=== PATIENT | female | born 1985 | race Caucasian/White ===

== ENCOUNTER 2019-11-29 07:37 | Emergency (ER) | payer OTHER, SELFPAY ==
--- NOTE | ~2019-11-29 | XR_ITS ---
EXAMINATION: XR chest 2V DATE: 11/29/2019 09:51 INDICATION: Heart palpitations TECHNIQUE: PA and lateral views of the chest are obtained. COMPARISON: None available FINDINGS: The lungs are free of acute opacities. There is no pleural effusion or pneumothorax. The ca rdiomediastinal silhouette is normal. There is subtle thoracic levocurvature. IMPRESSION: 1. No acute cardiopulmonary abnormality. Reviewed, dictated and finalized at location A.
[2019-11-29 07:44] VITALS: BP 122/77; PULSE 102; RESP 18; TEMP 36.7; O2SAT 98
[2019-11-29 07:50] VITALS: BP 122/77; PULSE 94; RESP 18; O2SAT 99
--- NOTE | 2019-11-29 07:59 | ED.ARRPALP ---
HPI - Arrhythmia/Palpitations General Chief Complaint: Arrhythmia/Palpitations Stated Complaint: palpitations Time Seen by Provider: 11/29/19 07:59 Source: patient and family Mode of arrival: ambulatory Limitations: no limitations History of Present Illness HPI narrative: Patient is a 34-year-old female who presents for evaluation of palpitations. Patient reports intermittent palpitations over the past week. Patient states that she has a recent diagnosis of anxiety and has been seen by her primary care physician's office and diagnosed with possible panic disorder and anxiety. Patient has a prescription for last lorazepam as needed, but does not like the way she makes her feel. She denies any current chest pain, hair loss, dry skin or unintended weight loss. No history of thyroid issues. No diarrhea or abdominal pain. No skin flushing that the patient has noticed. Patient denies any current chest pain, patient does states she feels palpitations currently, heart rate in room at the time of my assessment is in the 80s. Patient denies recent car or air travel. No history of blood clot. Related Data Home Medications Medication Instructions Recorded Confirmed No Home Medications 11/29/19 Allergies Allergy/AdvReac Type Severity Reaction Status Date / Time No Known Allergies Allergy Unknown Verified 11/29/19 07:49 Review of Systems Review of Systems: Narrative: CONSTITUTIONAL: Denies fever, chills, at times patient can feel diaphoretic with the palpitations EYES: Denies visual changes, redness, or discharge. ENT: Denies rhinorrhea, congestion, sore throat, or otalgia. CARDIOVASCULAR: Denies chest pain, reports palpitations without leg edema RESPIRATORY: Denies cough or dyspnea. GASTROINTESTINAL: Denies abdominal pain, nausea, vomiting, or diarrhea. GENITOURINARY: Denies dysuria or hematuria. SKIN: Denies rash or itching. MUSCULOSKELETAL: Denies back pain, joint pain, or myalgia. NEUROLOGIC: Denies headache, numbness, or weakness. PSYCHIATRIC: Reports anxiety PMFSH Past Medical History Medical History (Updated 11/29/19 @ 10:55 by Lily Paniagua MD) Anxiety Social History Social History (Updated 11/29/19 @ 08:35 by Lily Paniagua MD) Smoking status: Never smoker Alcohol intake: current Substance use: never Living arrangements: with family Gender identity (if verbalized by the patient): Female Sexual Orientation (if Verbalized by the Patient): Straight or Heterosexual Exam Narrative: Exam Narrative: GENERAL: Awake, alert, conversant HEAD: Normocephalic, atraumatic. EYES: PERRLA and EOMI. ENT: Nares clear, no rhinorrhea or epistaxis. Mucous membranes moist. NECK: Supple. CHEST: No respiratory distress, breathing even and non labored HEART: Regular rate, sinus rhythm ABDOMEN:Non distended, non tender EXTREMITIES: Normal range of motion. No edema. SKIN: Warm, dry, no rash. NEURO:No focal deficits. Alert and oriented x3 Course Vital Signs Vital signs: Vital Signs Temperature 36.7 C 11/29/19 07:44 Pulse Rate 102 H 11/29/19 07:44 Respiratory Rate 18 11/29/19 07:44 Blood Pressure 122/77 11/29/19 07:44 Pulse Oximetry 98 11/29/19 07:44 Temperature 36.7 C 11/29/19 07:44 Pulse Rate 90 11/29/19 09:00 Respiratory Rate 20 11/29/19 09:00 Blood Pressure 128/85 11/29/19 09:00 Pulse Oximetry 95 11/29/19 09:00 MDM - Arrhythmia/Palpitations MDM Narrative Medical decision making narrative: Patient presented for evaluation of palpitations. These of been ongoing over the past week. Patient at the time of presentation is in normal sinus rhythm without evidence of arrhythmia or ischemic changes on EKG. Vital signs are very stable. No reproducible chest wall pain. No signs of hyper or hypothyroidism. Laboratory results are quite reassuring with a negative troponin, no evidence of hyper or hypothyroidism, d-dimer is negative, not suggestive of a blood clot. Patient
[2019-11-29 08:20] LABS: Basophils Percent Auto 0.3 % (0.2-1.2); Eosinophils Percent Auto 0.1 % (0-4.4); Hematocrit 45.4 % (37.0-47.0); Immature Granulocyte Absolute 0.15 K/mm3 (0.00-0.031); Immature Granulocyte Percent A 1.6 % (0-0.5); Lymphocytes Absolute Auto 1.82 K/mm3 (0.9-3.2); Lymphocytes Percent Auto 19.2 % (18.3-44.2); Mean Corpuscular Hemoglobin 29.2 pg (26-34); Mean Corpuscular Volume 88.3 fl (80-100); Monocytes Absolute Auto 0.6 K/mm3 (0.1-0.6); Monocytes Percent Auto 5.9 % (2.6-8.5); Neutrophils Absolute Auto 6.9 K/mm3 (1.3-6.7); Neutrophils Percent Auto 72.9 % (45.5-73.1); Platelet Count Result 327 k/mm3 (150-375); Red Blood Count 5.14 M/mm3 (4.2-5.4); Red Cell Distribution Width 12.8 % (11.5-14.5); White Blood Count 9.5 K/mm3 (4.5-10.0)
--- NOTE | 2019-11-29 08:27 | ECG_ITS ---
Measurements Intervals [place] Rate: 95 P: 49 [place]: 177 QRS: 17 QRSD: 93 T: 53 QT: 357 QTc: 451 Interpretive Statements SINUS RHYTHM NORMAL ECG Electronically Signed On 11-29-2019 9:02:40 CDT by Hernandez Olsen D.O.
[2019-11-29 08:29] LABS: Anion Gap 7 mmol/L (8-16); Blood Urea Nitrogen 6 mg/dL (7-17); Carbon Dioxide 27 mmol/L (22-30); Chloride 103 mmol/L (98-107); Estimated CRCL calculation 125 ml/min; Estimated Glomerular Filt Rate > 60; Glucose 99 mg/dL (65-105); Potassium 4.3 mmol/L (3.4-5.0); Sodium 137 mmol/L (137-145)
[2019-11-29 08:40] LABS: Troponin I < 0.012 ng/mL (0.000-0.034)
[2019-11-29 09:00] VITALS: BP 128/85; PULSE 90; RESP 20; O2SAT 95
[2019-11-29 09:31] LABS: INR 1.1; Prothrombin Time 13.5 Seconds (11.1-14.7)
[2019-11-29 09:32] LABS: Partial Thromboplastin Time 28.5 SECONDS (22.3-36.8)
[2019-11-29 09:34] LABS: D Dimer 0.29 ug/mL (<0.48)
== END 2019-11-29 11:26 | disposition home or self-care (01) ==
PROVIDERS: Emergency Provider Emergency Medicine; PCP Internal Medicine
DX: R00.2 Palpitations (principal); F41.9 Anxiety disorder, unspecified
CPT/HCPCS: 36415; 71046; 80048; 84443; 84484; 85025; 85380; 85610; 85730; 93005; 99284

== ENCOUNTER → 2021-03-21 10:06 | Outpatient (REF) | payer OTHER, SELFPAY | LOC: ANHLAB 10:06 | PROVIDERS: PCP Nurse Practitioner Adult Health; Visit Provider Nurse Practitioner | DX: D22.5 Melanocytic nevi of trunk (principal) | CPT/HCPCS: 88305 ==

== ENCOUNTER 2022-02-26 01:16 | Emergency (ER) | payer OTHER, SELFPAY ==
--- NOTE | ~2022-02-26 | XR_ITS ---
EXAMINATION: XR chest 1V portable 02/26/2022 02:05 INDICATION: Left-sided chest pain PROCEDURE: AP portable chest COMPARISON: 11/29/2019 FINDINGS: The lungs are clear. The cardiomediastinal silhouette is within normal limits. There are no pleural effusions. There is no pneumothorax suspected. IMPRESSION: 1: NO ACUTE CARDIOPULMONARY DISEASE. Reviewed, dictated and finalized at location A. [employer]PERATOR
--- NOTE | 2022-02-26 01:18 | ECG_ITS ---
Measurements Intervals [place] Rate: 109 P: 39 [place]: 192 QRS: 14 QRSD: 94 T: 31 QT: 339 QTc: 457 Interpretive Statements SINUS TACHYCARDIA NONSPECIFIC ST AND T WAVE ABNORMALITIES COMPARED TO ECG 11/29/2019 07:49:01 NO SIGNIFICANT CHANGES Electronically Signed On 02-26-2022 11:23:01 CONTRACT NEGOTIATOR by Sonny Jacob M.D.
[2022-02-26 01:21] VITALS: BP 145/98; PULSE 104; RESP 18; TEMP 36.5; O2SAT 98
[2022-02-26 01:59] LABS: Appearance Urine Clear (Clear); Basophils Percent Auto 0.3 % (0.2-1.2); Bilirubin Urine Negative (Negative); Blood Urine Negative (Negative); Color Urine Yellow (Yellow); Eosinophils Absolute Auto 0.1 K/mm3 (0-0.3); Eosinophils Percent Auto 0.5 % (0-4.4); Glucose Urine UA Negative (Negative); Immature Granulocyte Absolute 0.02 K/mm3 (0.00-0.031); Immature Granulocyte Percent A 0.2 % (0-0.5); Ketones Urine Negative (Negative); Leukocyte Esterase Ur 1+ LEU/UL (Negative); Lymphocytes Absolute Auto 3.15 K/mm3 (0.9-3.2); Mean Corpuscular HGB Conc 32.6 g/dl (32-36); Mean Corpuscular Hemoglobin 28.9 pg (26-34); Mean Corpuscular Volume 88.7 fl (80-100); Mean Platelet Volume 10.9 fl (7.4-10.4); Monocytes Absolute Auto 0.8 K/mm3 (0.1-0.6); Monocytes Percent Auto 6.9 % (2.6-8.5); Neutrophils Absolute Auto 6.9 K/mm3 (1.3-6.7); Neutrophils Percent Auto 63.1 % (45.5-73.1); Nitrate Urine Negative (Negative); Platelet Count Result 304 k/mm3 (150-375); Protein Urine Negative (Negative); Red Blood Count 4.85 M/mm3 (4.2-5.4); Red Cell Distribution Width 12.8 % (11.5-14.5); Specific Grav Ur <= 1.005 (1.001-1.035); Urobilinogen Urine 0.2 mg/dL (<2.0); White Blood Count 10.9 K/mm3 (4.5-10.0)
[2022-02-26] MEDS: ONDANSETRON INJ 4 MG/2 ML VIAL IV PUSH (01:59)
[2022-02-26] MEDS: BELLADONNA ALK/PHENOB ELIX 10 ML, MAG HYDROX/ALUMINUM HYD/SIMETH 30 ML, LIDOCAINE HCL 2... PO (01:59)
--- NOTE | 2022-02-26 02:05 | ED.GENADULT ---
HPI - General Adult General Chief complaint: Unspecified Stated complaint: Left shoulder/chest pain, dizzy Time Seen by Provider: 02/26/22 01:36 History of Present Illness HPI narrative: Patient 36-year-old female presents emerged department with chief complaint of chest pain patient reports that this evening she started having pain in the left side of her chest and left shoulder and left neck. Patient reports the pain is not improved by anything reports that she had some nausea and felt as though she was little lightheaded when this was going on as well patient reports no prior history of cardiac disease reports no family history for cardiac disease at a young age. Patient reports symptoms are moderate in severity reports the pain is more of a squeezing-like pain Related Data Home Medications Medication Instructions Recorded Confirmed escitalopram oxalate 5 mg tablet mg 02/26/22 liraglutide (weight loss) 3 mg/0.5 mg subcut 02/26/22 mL (18 mg/3 mL) subcut pen injector (Saxenda) pravastatin 20 mg tablet mg 02/26/22 Allergies Allergy/AdvReac Type Severity Reaction Status Date / Time No Known Allergies Allergy Unknown Verified 02/26/22 01:25 Review of Systems Review of Systems: A 10 system review of systems was completed on the patient and is negative except for what is stated in the HPI. Nursing and ancillary documentation was reviewed. [facility] Past Medical History Medical History Anxiety Social History Social History Alcohol intake: current Substance use: never Gender identity (if verbalized by the patient): Female Sexual Orientation (if Verbalized by the Patient): Straight or Heterosexual Exam Narrative: GENERAL: Well-appearing, well-nourished, and in no acute distress. HEAD: Normocephalic, atraumatic. EYES: PERRLA and EOMI. ENT: Nares clear, no rhinorrhea or epistaxis. Mucous membranes moist. NECK: Supple. CHEST: Clear to auscultation. No respiratory distress. HEART: Regular rate and rhythm. No murmur heard. Normal peripheral pulses. ABDOMEN: Soft, nontender, nondistended, normal active bowel sounds. EXTREMITIES: Normal range of motion. No edema. SKIN: Warm, dry, no rash. NEURO: No focal deficits. Alert and oriented x3. PSYCH: Normal mood and affect. Course Course Emergency Course: EKG is sinus tachycardia rate of [address] elevation or ST depression X-ray shows no focal infiltrate Patient symptoms were completely resolved after receiving the GI cocktail. The patient has a negative troponin with a heart score of 1. Vital Signs Vital signs: Vital Signs Temperature 36.5 C 02/26/22 01:21 Pulse Rate 104 H 02/26/22 01:21 Respiratory Rate 18 02/26/22 01:21 Blood Pressure 145/98 H 02/26/22 01:21 Pulse Oximetry 98 02/26/22 01:21 Oxygen Delivery Room Air 02/26/22 01:21 Temperature 36.5 C 02/26/22 01:21 Pulse Rate 104 H 02/26/22 01:21 Respiratory Rate 18 02/26/22 01:21 Blood Pressure 145/98 H 02/26/22 01:21 Pulse Oximetry 98 02/26/22 01:21 Oxygen Delivery Room Air 02/26/22 01:21 Medical Decision Making Vital Signs Vital Signs: Vital Signs Temperature 36.5 C 02/26/22 01:21 Pulse Rate 104 H 02/26/22 01:21 Respiratory Rate 18 02/26/22 01:21 Blood Pressure 145/98 H 02/26/22 01:21 Pulse Oximetry 98 02/26/22 01:21 Oxygen Delivery Room Air 02/26/22 01:21 Temperature 36.5 C 02/26/22 01:21 Pulse Rate 104 H 02/26/22 01:21 Respiratory Rate 18 02/26/22 01:21 Blood Pressure 145/98 H 02/26/22 01:21 Pulse Oximetry 98 02/26/22 01:21 Oxygen Delivery Room Air 02/26/22 01:21 Lab Data 02/26/22 01:52 02/26/22 01:52 Labs: Lab Results 02/26/22 02/26/22 02/26/22 Range/Units 01:52 01:52 01:52 WBC 10.9 H (4.5-10.0) K/mm3 RBC 4.85 (4.2-5.4)
[2022-02-26 02:12] LABS: Alanine Aminotransferase 16 U/L (6-35); Albumin Level 4.6 g/dL (3.5-5.1); Alkaline Phosphatase 104 U/L (38-126); Anion Gap 9 mmol/L (8-16); Aspartate Amino Transferase 19 U/L (14-36); Bilirubin,Total 0.3 mg/dL (0.2-1.3); Blood Urea Nitrogen 9 mg/dL (7-17); Calcium 8.8 mg/dL (8.4-10.2); Carbon Dioxide 26 mmol/L (22-30); Chloride 105 mmol/L (98-107); Estimated CRCL calculation 95 ml/min; Estimated Glomerular Filt Rate > 60; Glucose 96 mg/dL (65-110); Lipase 134 U/L (23-300); Potassium 3.5 mmol/L (3.4-5.0); Sodium 140 mmol/L (137-145)
[2022-02-26 02:24] LABS: Troponin I < 0.012 ng/mL (0.000-0.034)
[2022-02-26 02:26] LABS: Add Urine Microscopic? YES; RBC Urine 0-2 /hpf (0-2); Squamous Epithelial Cell Urine Occasional /hpf (Few); WBC Urine 0-3 /hpf
[2022-02-26 02:32] LABS: Partial Thromboplastin Time 33.7 SECONDS (22.3-36.8)
== END 2022-02-26 03:19 | disposition home or self-care (01) ==
PROVIDERS: Emergency Provider Emergency Medicine; PCP Nurse Practitioner Adult Health
DX: R07.89 Other chest pain (principal); F41.9 Anxiety disorder, unspecified; R00.0 Tachycardia, unspecified; R94.31 Abnormal electrocardiogram [ECG] [EKG]
CPT/HCPCS: 36415; 71045; 80053; 81001; 83690; 84484; 85025; 85610; 85730; 93005; 96374; 99284; A9270; J2405

== ENCOUNTER 2022-03-20 07:00 | Outpatient (NON) | payer OTHER, SELFPAY | END 2022-03-20 07:01 | disposition home or self-care (01) | PROVIDERS: PCP Nurse Practitioner Adult Health; Visit Provider Nurse Practitioner | DX: D22.62 Melanocytic nevi of left upper limb, including shoulder (principal) | CPT/HCPCS: 88305 ==

== ENCOUNTER 2022-08-17 00:29 | Day surgery (SDC) | payer OTHER, SELFPAY ==
[2022-08-02 14:12] VITALS: BMI 31.6
[2022-08-17 08:17] VITALS: BP 118/66; PULSE 81; RESP 19; TEMP 36.1; O2SAT 100
[2022-08-17] MEDS: LACTATED RINGERS 1,000 ML 150 ML IV CONT (08:36)
--- NOTE | 2022-08-17 08:49 | PM.HPGS ---
History of Present Illness History of Present Illness Consent: Risks, benefits, and alternatives have been discussed and questions answered. Patient agrees to proceed with procedure. Chief complaint: neoplasm screening Narrative: Karli Adame is a 37 year old female Referred for colon cancer screening due to family history of colon cancer. Review of Systems Review of Systems: All systems reviewed & are unremarkable except as noted in HPI and below PMFSH Past Medical History Medical History Anxiety Social History Social History Smoking status: Never smoker Alcohol intake: current Drinks per week: 3 Substance use: never Substance use type: does not use Living arrangements: with family Gender identity (if verbalized by the patient): Female Sexual Orientation (if Verbalized by the Patient): Straight or Heterosexual Spiritual care concerns: No Meds Home Medications and Allergies Home Medications Medication Instructions Recorded Confirmed Type liraglutide (weight loss) 3 mg/0.5 1.8 mg subcut DAILY 02/26/22 08/02/22 History mL (18 mg/3 mL) subcut pen injector (Saxenda) pravastatin 20 mg tablet 20 mg PO DAILY 02/26/22 08/02/22 History Allergies Allergy/AdvReac Type Severity Reaction Status Date / Time No Known Allergies Allergy Unknown Verified 08/17/22 08:16 Vital Signs Vital Signs - 24 hr 08/17/22 08:17 Temperature 36.1 C L Pulse Rate 81 Respiratory Rate 19 Blood Pressure 118/66 Pulse Oximetry 100 Oxygen Delivery Room Air Exam Const: General: alert Orientation/consciousness: patient oriented x3 Resp: Auscultation: clear to auscultation bilaterally Cardio: Rhythm: regular rhythm GI: GI Palp: Yes Soft to palpation and No Tenderness to palpation present (GI) Neuro: General: patient oriented x3 Assessment and Plan Assessment and plan (1) Colon cancer screening: Code(s): Z12.11 - Encounter for screening for malignant neoplasm of colon Status: Acute Assessment and Plan: Colonoscopy with possible biopsy or polypectomy or cautery or injection of substances.
--- NOTE | 2022-08-17 09:08 | WPDANESEPPF ---
Anes - Initial Pre Proc Eval Procedure: Operation Date: 08/17/22 09:30 Proposed Procedures p Screening Colonoscopy - Gaudencio Cardozo MD Date/Time: 08/17/22 09:08 Surgeon: Gaudencio Cardozo MD Pre Op Diagnosis: neoplasm screening Patient Data Age: 37 Gender: F Height: 1.68 m Weight: 91.1 kg Last Vital Signs Temp 97 F L 08/17/22 08:17 Pulse 81 08/17/22 08:17 Resp 19 08/17/22 08:17 BP 118/66 08/17/22 08:17 Pulse Ox 100 08/17/22 08:17 O2 Del Method Room Air 08/17/22 08:17 Allergies Allergy/AdvReac Type Severity Reaction Status Date / Time No Known Allergies Allergy Unknown Verified 08/17/22 08:16 Home Medications Medication Instructions Recorded Confirmed Type liraglutide (weight loss) 3 mg/0.5 1.8 mg subcut DAILY 02/26/22 08/02/22 History mL (18 mg/3 mL) subcut pen injector (Saxenda) pravastatin 20 mg tablet 20 mg PO DAILY 02/26/22 08/02/22 History Patient hx anesthesia problems: none Family hx anesthesia problems: none Results Review: All pre-operative results and documents have been reviewed as part of the pre-operative evaluation. [facility] Past Medical History Medical History Anxiety Social History Social History Smoking status: Never smoker Alcohol intake: current Drinks per week: 3 Substance use: never Substance use type: does not use Living arrangements: with family Gender identity (if verbalized by the patient): Female Sexual Orientation (if Verbalized by the Patient): Straight or Heterosexual Spiritual care concerns: No Anes - Eval Final PreProcedure Day of Procedure 08/17/22 09:08 Patient weight: obese Heart: regular rate and rhythm Lungs: clear to auscultation Airway: Mallampati scale class II Neurological: alert and oriented Last oral intake: >/= 8 hours ASA classification: II Emergent: no Anesthetic plan: proceed Anesthesia type and monitoring: general GIVS and standard monitoring Results Review: All pre-operative results and documents have been reviewed as part of the pre-operative evaluation. Informed Consent: The patient's anesthetic plan and its attendant risks and benefits were discussed with the patient/family/POA. Questions were solicited and answers provided to the satisfaction of the patient/family/POA.
[2022-08-17 09:41] VITALS: BP 104/60; PULSE 76; RESP 19; O2SAT 93
[2022-08-17 09:51] VITALS: BP 104/60; PULSE 76; RESP 19; O2SAT 93
[2022-08-17 10:01] VITALS: BP 114/63; PULSE 76; RESP 19; O2SAT 93
== END 2022-08-17 10:07 | disposition home or self-care (01) ==
PROVIDERS: PCP Nurse Practitioner Family; Visit Provider Internal Medicine Gastroenterology
PROC: 0DJD8ZZ Inspection of Lower Intestinal Tract, Via Natural or Artificial Opening Endoscopic (ICD-10-PCS; CPT 45378; principal; 2022-08-17 09:30)
DX: Z12.11 Encounter for screening for malignant neoplasm of colon (principal); Z80.0 Family history of malignant neoplasm of digestive organs
CPT/HCPCS: 45378; J2001; J2704; J7120

== ENCOUNTER → 2022-10-25 07:07 | Outpatient (CLI) | payer OTHER, SELFPAY ==
--- NOTE | ~2022-10-25 | MR_ITS ---
MRA HEAD History: Family history of aneurysm Technique: 3D time of flight MRA of the head is performed. Findings: The right and left distal vertebral arteries and the basilar and posterior cerebral arterie s are normal. Right and left distal internal carotid arteries and anterior and middle cerebral arteri es are normal. There is no aneurysm, stenosis, or occlusion. Impression: No occlusion, stenosis, or aneurysm. Reviewed, dictated and finalized at location . Impression: No occlusion, stenosis, or aneurysm.
== END ==
PROVIDERS: PCP Nurse Practitioner Family; Visit Provider Nurse Practitioner Family
DX: Z82.49 Family history of ischemic heart disease and other diseases of the circulatory system (principal)
CPT/HCPCS: 70544

== ENCOUNTER 2023-03-21 14:21 | Outpatient (NON) | payer OTHER, SELFPAY | END 2023-03-21 14:22 | disposition home or self-care (01) | LOC: ANHLAB 14:23 | PROVIDERS: PCP Nurse Practitioner Family; Visit Provider Nurse Practitioner | DX: D22.61 Melanocytic nevi of right upper limb, including shoulder (principal); D22.5 Melanocytic nevi of trunk; D22.72 Melanocytic nevi of left lower limb, including hip | CPT/HCPCS: 88305 ==

== ENCOUNTER 2024-10-08 09:41 | Outpatient (CLI) | payer OTHER, SELFPAY ==
--- OUTSIDE RECORDS SUMMARY | 2024-10-08 09:45 | XMS_ITS | Data Portability ---
Author Organization JIN - [facility], Main Office Address [address] [place] [address] Assessment Encounter Date Assessment Date Assessment LastModified by Organization Details LastModified Time 06/26/2022 06/26/2022 [facility] Cscope- ordered Call office if worse, ER if life-threatening illness RTC in 3 months She voices understanding of plan and agrees [email or web address] Not available 06/26/2022 13:59:16 10/02/2022 10/02/2022 [facility] Cscope- 07/2022- Cardozo- Family hx colon ca- repeat 5 years- 07/2027 Call office if worse, ER if life-threatening illness RTC in 4 months She voices understanding of plan and agrees [email or web address] Not available 10/02/2022 13:24:01 02/05/2023 02/05/2023 [facility] Cscope- 07/2022- Cardozo- Family hx colon ca- repeat 5 years- 07/2027 Call office if worse, ER if life-threatening illness RTC in 4 months She voices understanding of plan and agrees [email or web address] Not available 02/05/2023 10:48:15 Plan of Treatment Reminders Order Date Submit Date Provider Last Modified By Organization Details Last Modified Time Details Appointments None recorded. Lab lipid panel, serum 2023 [facility], [address] [facility], [place], [address], 06:28:02 CMP, serum or plasma 2023 [facility], [address] [facility], [place], [address], 4 06:28:04 CBC w/ auto diff 2023 024 [facility], [address], [place], [address], 4 06:28:06 TSH + free T4, serum 2023 024 [facility], [address], [place], [address], 4 06:28:03 HbA1c (hemoglobi n A1c), blood 2023 024 [facility], [address], [place], [address], 4 06:28:08 hepatitis C virus Ab, serum 2023 024 [facility], [address], [place], [address], 4 06:28:07 glycohemog lobin, total, blood 2023 024 [facility] (Lab), [address] [place], [address], 4 08:01:58 lipid panel, serum 2023 024 [facility] (Lab), [address] [place], [address], 4 08:01:57 TSH, serum or plasma 2023 024 [facility] (Lab), [address] [place], [address], 4 08:01:57 CBC w/ auto diff 2023 024 [facility] (Lab), [address] [place], [address], 4 08:01:58 CMP, [facility] or [facility] [address] [place], [address], 4 08:01:58 glycohemog lobin, total, blood 2022 023 [facility] (Lab), [address] [place], [address], 3 19:50:20 CBC w/ auto diff 2022 023 [facility] (Lab), [address] [place], [address], 3 15:05:35 CMP, serum or plasma 2022 023 [facility] (Lab), [address] [place], [address], 3 15:51:58 lipid panel, serum 2022 023 [facility] (Lab), [address] [place], [address], 3 15:52:02 SHANTI (antinucle ar antibodies ) screen, ifa, serum [email or web address] (Lab), [address] [place], [address], 3 10:49:04 CBC w/ auto diff 2022 023 [facility] (Lab), [address] [place], [address], 3 14:43:28 CMP, serum or plasma 2022 023 [facility] (Lab), [address] [place], [address], 3 16:47:43 lipid panel, serum 2022 023 [facility] (Lab), [address] [place], [address], 3 16:47:48 TSH, serum or plasma 2022 023 [facility] (Lab), [address] [place], [address], 3 16:50:23 Referral obstetrici an and gynecologi st referral - Please call patient to schedule. 2023 024 [email or web address] Hilliard MD, [address], [place], [address], 5 08:56:25 Procedures colonoscop y procedure (PROC) 2022 023 [facility] Gaudencio Cardozo MD, [address], [address], [place], [address], 3 10:56:00 Surgeries None recorded. Imaging MR, angiogram, head, w/o contrast 2022 023 [facility], [address], [place], [address], 3 09:28:50 MR, angiogram, head, w/o contrast - Approved [id number] 10/23/22-03/26 8-24 2022 023 [facility] (Imaging), [address], [place], [address], 3 16:33:35 Medication Orders pravastati n 20 mg tablet 2023 024 [facility]/Pharmacy #[id number], [address], [place], [address], 4 10:36:26 pravastati n 20 mg tablet 2023 024 [facility]/Pharmacy #[id number], [address], [place], [address], 4 08:54:57 pravastati n 20 mg tablet 2022 023 [facility]/Pharmacy #[id number], [address], [place], [address], 3 10:54:54 Saxenda 3 mg/0.5 mL (18 mg/3 mL) subcutaneo us pen injector 2022 023 [id number] [address], [place], [address], 4 08:48:09 Patient TargetsNo targets recorded. 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 Referring Physician: Marci Elias, Internal Medicine, Encounter Date: 02/26/2024 Results Created Date Observation Date Name Description Value Unit Range Abnormal Flag Note LastModifiedBy Organization Detail LastModifiedTime 06/27/19 23 06/26/2022 CBC/C OMPLE TE BLD COUNT W/DIF F white blood cells 8.4 x10'3 /uL 4.2-10 .8 Not Available [facility] (Lab) [address] [facility] [place], [address], 06/26/2022 14:43:28 06/27/19 23 06/26/2022 CBC/C OMPLE TE BLD COUNT W/DIF F red blood cells 4.90 x10'6 /uL 3.80-5 .20 Not Available [facility] (Lab) [address] [place], [address], 06/26/2022 14:43:28 06/27/19 23 06/26/2022 CBC/C OMPLE TE BLD COUNT W/DIF F hemoglobin 13.9 g/dL 12.0-1 5.6 Not Available [facility] (Lab) [address] [place], [address], 06/26/2022 14:43:28 06/27/19 23 06/26/2022 CBC/C OMPLE TE BLD COUNT W/DIF F hematocrit 43.8 % 35.7-4 5.7 Not Available [facility] (Lab) [address] [place], [address], 06/26/2022 14:43:28 06/27/19 23 06/26/2022 CBC/C OMPLE TE BLD COUNT W/DIF F mean red cell volume 89.4 fL 82.0-9 9.0 Not Available [facility] (Lab) [address] [place], [address], 06/26/2022 14:43:28 06/27/19 23 06/26/2022 CBC/C OMPLE TE BLD COUNT W/DIF F mean red cell hemoglobin 28.4 pg 27.0-3 3.0 Not Available [facility] (Lab) [address] [place], [address], 06/26/2022 14:43:28 06/27/19 23 06/26/2022 CBC/C OMPLE TE BLD COUNT W/DIF F mean RBC HGB concentratio n 31.7 g/dL 31.0-3 6.0 Not Available [facility] (Lab) [address] [facility] [place], [address], 06/26/2022 14:43:28 06/27/19 23 06/26/2022 CBC/C OMPLE TE BLD COUNT W/DIF F red cell distribution width 13.2 % 11.8-1 5.5 Not Available [facility] (Lab) [address] [place], [address], 06/26/2022 14:43:28 06/27/19 23 06/26/2022 CBC/C OMPLE TE BLD COUNT W/DIF F platelets 310 x10'3 /uL 150-40 0 Not Available [facility] (Lab) [address] [place], [address], 06/26/2022 14:43:28 06/27/19 23 06/26/2022 CBC/C OMPLE TE BLD COUNT W/DIF F mean platelet volume 11.2 fL 9.0-12 .4 Not Available [facility] (Lab) [address] [place], [address], 06/26/2022 14:43:28 06/27/19 23 06/26/2022 CBC/C OMPLE TE BLD COUNT W/DIF F neutrophils 63.3 % 39.0-7 2.0 Not Available [facility] (Lab) [address] [place], [address], 06/26/2022 14:43:28 06/27/19 23 06/26/2022 CBC/C OMPLE TE BLD COUNT W/DIF F lymphocytes 27.7 % 16.0-4 7.0 Not Available [facility] (Lab) [address] [place], [address], 06/26/2022 14:43:28 06/27/19 23 06/26/2022 CBC/C OMPLE TE BLD COUNT W/DIF F monocytes 7.1 % 5.0-12 .0 Not Available [facility] (Lab) [address] [place], [address], 06/26/2022 14:43:28 06/27/19 23 06/26/2022 CBC/C OMPLE TE BLD COUNT W/DIF F eosinophils 0.8 % 1.0-7. 0 low Not Available [facility] (Lab) [address] [place], [address], 06/26/2022 14:43:28 06/27/19 23 06/26/2022 CBC/C OMPLE TE BLD COUNT W/DIF F basophils 0.7 % 0.0-2. 0 Not Available [facility] (Lab) [address] [place], [address], 06/26/2022 14:43:28 06/27/19 23 06/26/2022 CBC/C OMPLE TE BLD COUNT W/DIF F immature granulocytes 0.4 % 0.00-0 .50 Not Available [facility] (Lab) [address] [place], [address], 06/26/2022 14:43:28 06/27/19 23 06/26/2022 CBC/C OMPLE TE BLD COUNT W/DIF F neutrophils, absolute count 5.29 x10'3 /uL 1.5-8. 0 Not Available [facility] (Lab) [address] [place], [address], 06/26/2022 14:43:28 06/27/19 23 06/26/2022 CBC/C OMPLE TE BLD COUNT W/DIF F lymphocytes, absolute count 2.31 x10'3 /uL 1.07-3 .43 Not Available [facility] (Lab) [address] [place], [address], 06/26/2022 14:43:28 06/27/19 23 06/26/2022 CBC/C OMPLE TE BLD COUNT W/DIF F monocytes, absolute count 0.59 x10'3 /uL 0.29-0 .99 Not Available [facility] (Lab) [address] [place], [address], 06/26/2022 14:43:28 06/27/19 23 06/26/2022 CBC/C OMPLE TE BLD COUNT W/DIF F eosinophils, absolute count 0.07 x10'3 /uL 0.02-0 .53 Not Available [facility] (Lab) [address] [place], [address], 06/26/2022 14:43:28 06/27/19 23 06/26/2022 CBC/C OMPLE TE BLD COUNT W/DIF F basophils, absolute count 0.06 x10'3 /uL 0.01-0 .08 Not Available [facility] (Lab) [address] [place], [address], 06/26/2022 14:43:28 06/27/19 23 06/26/2022 CBC/C OMPLE TE BLD COUNT W/DIF F immature granulocytes ,absolute 0.03 x10'3 /uL 0.00-0 .05 Not Available [facility] (Lab) [address] [place], [address], 06/26/2022 14:43:28 06/27/19 23 06/26/2022 CBC/C OMPLE TE BLD COUNT W/DIF F nucleated red blood cells 0.0 % -0 Not Available [facility] (Lab) [address] [place], [address], 06/26/2022 14:43:28 06/27/19 23 06/26/2022 CBC/C OMPLE TE BLD COUNT W/DIF F NRBC# 0.00 x10'3 /uL Not Available [facility] (Lab) [address] [place], [address], 06/26/2022 14:43:28 06/27/19 23 06/26/2022 COMPR EHENS KRISTEN METAB OLIC PANEL sodium 139 mmol/ L 137-14 5 Not Available [facility] (Lab) [address] [place], [address], 06/26/2022 16:47:43 06/27/19 23 06/26/2022 COMPR EHENS KRISTEN METAB OLIC PANEL potassium 4.0 mmol/ L 3.5-5. 1 Not Available [facility] (Lab) [address] [place], [address], 06/26/2022 16:47:43 06/27/19 23 06/26/2022 COMPR EHENS KRISTEN METAB OLIC PANEL chloride 105 mmol/ L 98-107 Not Available [facility] (Lab) [address] [place], [address], 06/26/2022 16:47:43 06/27/19 23 06/26/2022 COMPR EHENS KRISTEN METAB OLIC PANEL carbon dioxide 25 mmol/ L 22-30 Not Available [facility] (Lab) [address] [place], [address], 06/26/2022 16:47:43 06/27/19 23 06/26/2022 COMPR EHENS KRISTEN METAB OLIC PANEL anion gap 13.0 mmol/ L 14-22 low Not Available [facility] (Lab) [address] [place], [address], 06/26/2022 16:47:43 06/27/19 23 06/26/2022 COMPR EHENS KRISTEN METAB OLIC PANEL glucose 72 mg/dL 70-99 Not Available [facility] (Lab) [address] [place], [address], 06/26/2022 16:47:43 06/27/19 23 06/26/2022 COMPR EHENS KRISTEN METAB OLIC PANEL BUN 11 mg/dL 8-19 Not Available [facility] (Lab) [address] [place], [address], 06/26/2022 16:47:43 06/27/19 23 06/26/2022 COMPR EHENS KRISTEN METAB OLIC PANEL creatinine 0.73 mg/dL 0.66-1 .25 Not Available [facility] (Lab) [address] [place], [address], 06/26/2022 16:47:43 06/27/19 23 06/26/2022 COMPR EHENS KRISTEN METAB OLIC PANEL GFR >60 Refer ence Range : Tinnie ge GFR Healt hy Adult : >60 mL/mi n/1.7 3 m2 Chron ic Kidne y Disea se: 15-60 mL/mi n/1.7 3 m2 Kidne y Failu re: <15/m L/min /1.73 m2 www.n iddk. nih.g ov The MDRD study equat ion has not been valid ated in child yaneth <18 years of age; pregn ant women ; the elder ly >85 years of age; or in some racia l or ethni c subgr oups, such as Hisil nics. Outsi de the valid ated brad eters , estim ated GFR is less accur ate, requi ring clini kim judgm ent on a case- by-ca se basis . Clini kim inter preta tion for other races and ages must be made by the clini froilan. The MDRD study equat ion has not been valid ated for the evalu ation of serum creat inine relat ed to nutri amaris l statu s or medic ation usage . For perso ns <18 years of age, a pedia tric GFR calcu lator is avail able on the F websi te: https ://jaime rodriguez.o rg/pr ofess ional s/kdo qi/gf r_cal culat or Not Available [facility] (Lab) [address] [place], [address], 06/26/2022 16:47:43 06/27/19 23 06/26/2022 COMPR EHENS KRISTEN METAB OLIC PANEL alkaline phosphatase 80 U/L 38-126 Not Available [facility] (Lab) [address] [facility] [place], [address], 06/26/2022 16:47:43 06/27/19 23 06/26/2022 COMPR EHENS KRISTEN METAB OLIC PANEL alanine aminotransfe rase 19 U/L 0-35 Not Available [facility] (Lab) [address] [facility] [place], [address], 06/26/2022 16:47:43 06/27/19 23 06/26/2022 COMPR EHENS KRISTEN METAB OLIC PANEL aspartate aminotransfe rase 21 U/L 15-37 Not Available [facility] (Lab) [address] [place], [address], 06/26/2022 16:47:43 06/27/19 23 06/26/2022 COMPR EHENS KRISTEN METAB OLIC PANEL bilirubin, total 0.30 mg/dL 0.20-1 .30 Not Available [facility] (Lab) [address] [place], [address], 06/26/2022 16:47:43 06/27/19 23 06/26/2022 COMPR EHENS KRISTEN METAB OLIC PANEL calcium 8.9 mg/dL 8.4-10 .2 Not Available [facility] (Lab) [address] [place], [address], 06/26/2022 16:47:43 06/27/19 23 06/26/2022 COMPR EHENS KRISTEN METAB OLIC PANEL total protein 7.1 g/dL 6.3-8. 2 Not Available [facility] (Lab) [address] [place], [address], 06/26/2022 16:47:43 06/27/19 23 06/26/2022 COMPR EHENS KRISTEN METAB OLIC PANEL albumin 4.2 g/dL 3.4-5. 0 Not Available [facility] (Lab) [address] [place], [address], 06/26/2022 16:47:43 06/27/19 23 06/26/2022 COMPR EHENS KRISTEN METAB OLIC PANEL globulin 2.9 g/dL 2.6-4. 2 Not Available [facility] (Lab) [address] [place], [address], 06/26/2022 16:47:43 06/27/19 23 06/26/2022 COMPR EHENS KRISTEN METAB OLIC PANEL A/G ratio 1.4 ratio 1.0-2. 0 Not Available [facility] (Lab) [address] [place], [address], 06/26/2022 16:47:43 06/27/19 23 06/26/2022 LIPID PANEL cholesterol 224 mg/dL 140-19 9 high NIH JAYSHREE NSUS RECOM MENDA TION FOR JI STERO L: ADULT CHILD LOW RISK: <200 <170 BORDE RLINE : <200- 239 ----- HIGH RISK: >240 >200 Not Available [facility] (Lab) [address] [place], [address], 06/26/2022 16:47:48 06/27/1906/26/2022 LIPID PANEL triglyceride s 142 mg/dL 0-150 NIH JAYSHREE NSUS REPOR T RECOM MENDA TION FOR TRIGL YCERI MIKAL: ADULT CHILD LOW RISK: <150 ----- BODER LINE: 150-1 99 ----- HIGH RISK: >200 ----- Not Available [facility] (Lab) [address] [place], [address], 06/26/2022 16:47:48 06/27/1906/26/2022 LIPID PANEL HDL cholesterol 61 mg/dL 40- Not Available [facility] (Lab) [address] [place], [address], 06/26/2022 16:47:48 06/27/19 23 06/26/2022 LIPID PANEL LDL cholesterol, calculated 135 mg/dL 0-130 high NIH JAYSHREE NSUS REPOR T RECOM MENDA TIONS FOR LDL: ADULT CHILD LOW RISK <130 <110 (OPTI MAL LDL) <100 ----- BORDE RLINE : 130-1 59 ----- HIGH RISK: >160 >130 A TRIGL YCERI DE RESUL T >400 INVAL IDATE S THE CALCU LATIO N FOR LDL FRACT IONAT ION - THE LDL RESUL T WILL NOT BE REPOR BHAVIK. Not Available [facility] (Lab) [address] [place], [address], 06/26/2022 16:47:48 06/27/19 23 06/26/2022 TSH W/REF TIM FT4 TSH with reflex free T4 1.060 uIU/m L 0.465- 4.680 Not Available [facility] (Lab) [address] [place], [address], 06/26/2022 16:50:23 06/27/19 23 06/27/2022 SHANTI/A NTINU CLEAR ANTIB ODIES ,IFA antinuclear antibodies, ifa Negati ve Negat kristen <1:80 Borde rline 1:80 Posit kristen >1:80 ICAP nomen clatu re: AC-0 For more infor ever saldana about Hep-2 cell patte rns use ANApa ttern s.org , the offic ial websi te for the Inter natio nal Conse nsus on Antin uclea r Antib epi (SHANTI) Patte rns (ICAP ). Perfo rmed at: - [facility] n [address] [facility], [place] [address] Lab Direc tor: Rubin griffin PhD, Phone : [phone] Not Available [facility] (Lab) [address] [place], [address], 06/27/2022 12:12:15 10/03/19 23 10/02/2022 CBC/C OMPLE TE BLD COUNT W/DIF F white blood cells 9.8 x10'3 /uL 4.2-10 .8 Not Available [facility] (Lab) [address] [place], [address], 10/02/2022 15:05:35 10/03/19 23 10/02/2022 CBC/C OMPLE TE BLD COUNT W/DIF F red blood cells 4.94 x10'6 /uL 3.80-5 .20 Not Available [facility] (Lab) [address] [facility] [place], [address], 10/02/2022 15:05:35 10/03/19 23 10/02/2022 CBC/C OMPLE TE BLD COUNT W/DIF F hemoglobin 14.2 g/dL 12.0-1 5.6 Not Available [facility] (Lab) [address] [place], [address], 10/02/2022 15:05:35 10/03/19 23 10/02/2022 CBC/C OMPLE TE BLD COUNT W/DIF F hematocrit 44.5 % 35.7-4 5.7 Not Available [facility] (Lab) [address] [place], [address], 10/02/2022 15:05:35 10/03/19 23 10/02/2022 CBC/C OMPLE TE BLD COUNT W/DIF F mean red cell volume 90.1 fL 82.0-9 9.0 Not Available [facility] (Lab) [address] [place], [address], 10/02/2022 15:05:35 10/03/19 23 10/02/2022 CBC/C OMPLE TE BLD COUNT W/DIF F mean red cell hemoglobin 28.7 pg 27.0-3 3.0 Not Available [facility] (Lab) [address] [place], [address], 10/02/2022 15:05:35 07/11/10/02/2022 CBC/C OMPLE TE BLD COUNT W/DIF F mean RBC HGB concentratio n 31.9 g/dL 31.0-3 6.0 Not Available [facility] (Lab) [address] [place], [address], 10/02/2022 15:05:35 10/03/19 23 10/02/2022 CBC/C OMPLE TE BLD COUNT W/DIF F red cell distribution width 13.2 % 11.8-1 5.5 Not Available [facility] (Lab) [address] [place], [address], 10/02/2022 15:05:35 10/03/19 23 10/02/2022 CBC/C OMPLE TE BLD COUNT W/DIF F platelets 317 x10'3 /uL 150-40 0 Not Available [facility] (Lab) [address] [place], [address], 10/02/2022 15:05:35 10/03/19 23 10/02/2022 CBC/C OMPLE TE BLD COUNT W/DIF F mean platelet volume 11.3 fL 9.0-12 .4 Not Available [facility] (Lab) [address] [place], [address], 10/02/2022 15:05:35 10/03/19 23 10/02/2022 CBC/C OMPLE TE BLD COUNT W/DIF F neutrophils 74.1 % 39.0-7 2.0 high Not Available [facility] (Lab) [address] [place], [address], 10/02/2022 15:05:35 10/03/19 23 10/02/2022 CBC/C OMPLE TE BLD COUNT W/DIF F lymphocytes 19.2 % 16.0-4 7.0 Not Available [facility] (Lab) [address] [place], [address], 10/02/2022 15:05:35 10/03/19 23 10/02/2022 CBC/C OMPLE TE BLD COUNT W/DIF F monocytes 5.9 % 5.0-12 .0 Not Available [facility] (Lab) [address] [place], [address], 10/02/2022 15:05:35 10/03/19 23 10/02/2022 CBC/C OMPLE TE BLD COUNT W/DIF F eosinophils 0.2 % 1.0-7. 0 low Not Available [facility] (Lab) [address] [place], [address], 10/02/2022 15:05:35 10/03/19 23 10/02/2022 CBC/C OMPLE TE BLD COUNT W/DIF F basophils 0.4 % 0.0-2. 0 Not Available [facility] (Lab) [address] [place], [address], 10/02/2022 15:05:35 10/03/19 23 10/02/2022 CBC/C OMPLE TE BLD COUNT W/DIF F immature granulocytes 0.2 % 0.00-0 .50 Not Available [facility] (Lab) [address] [place], [address], 10/02/2022 15:05:35 10/03/19 23 10/02/2022 CBC/C OMPLE TE BLD COUNT W/DIF F neutrophils, absolute count 7.25 x10'3 /uL 1.5-8. 0 Not Available [facility] (Lab) [address] [place], [address], 10/02/2022 15:05:35 10/03/19 23 10/02/2022 CBC/C OMPLE TE BLD COUNT W/DIF F lymphocytes, absolute count 1.88 x10'3 /uL 1.07-3 .43 Not Available [facility] (Lab) [address] [place], [address], 10/02/2022 15:05:35 10/03/19 23 10/02/2022 CBC/C OMPLE TE BLD COUNT W/DIF F monocytes, absolute count 0.58 x10'3 /uL 0.29-0 .99 Not Available [facility] (Lab) [address] [place], [address], 10/02/2022 15:05:35 10/03/19 23 10/02/2022 CBC/C OMPLE TE BLD COUNT W/DIF F eosinophils, absolute count 0.02 x10'3 /uL 0.02-0 .53 Not Available [facility] (Lab) [address] [place], [address], 10/02/2022 15:05:35 10/03/19 23 10/02/2022 CBC/C OMPLE TE BLD COUNT W/DIF F basophils, absolute count 0.04 x10'3 /uL 0.01-0 .08 Not Available [facility] (Lab) [address] [place], [address], 10/02/2022 15:05:35 10/03/19 23 10/02/2022 CBC/C OMPLE TE BLD COUNT W/DIF F immature granulocytes ,absolute 0.02 x10'3 /uL 0.00-0 .05 Not Available [facility] (Lab) [address] [place], [address], 10/02/2022 15:05:35 10/03/19 23 10/02/2022 CBC/C OMPLE TE BLD COUNT W/DIF F nucleated red blood cells 0.0 % -0 Not Available [facility] (Lab) [address] [place], [address], 10/02/2022 15:05:35 10/03/19 23 10/02/2022 CBC/C OMPLE TE BLD COUNT W/DIF F NRBC# 0.00 x10'3 /uL Not Available [facility] (Lab) [address] [facility] [place], [address], 10/02/2022 15:05:35 10/03/19 23 10/02/2022 COMPR EHENS KRISTEN METAB OLIC PANEL sodium 138 mmol/ L 137-14 5 Not Available [facility] (Lab) [address] [place], [address], 10/02/2022 15:51:58 10/03/19 23 10/02/2022 COMPR EHENS KRISTEN METAB OLIC PANEL potassium 4.6 mmol/ L 3.5-5. 1 Not Available [facility] (Lab) [address] [facility] [place], [address], 10/02/2022 15:51:58 10/03/19 23 10/02/2022 COMPR EHENS KRISTEN METAB OLIC PANEL chloride 104 mmol/ L 98-107 Not Available [facility] (Lab) [address] [place], [address], 10/02/2022 15:51:58 10/03/19 23 10/02/2022 COMPR EHENS KRISTEN METAB OLIC PANEL carbon dioxide 25 mmol/ L 22-30 Not Available [facility] (Lab) [address] [place], [address], 10/02/2022 15:51:58 10/03/19 23 10/02/2022 COMPR EHENS KRISTEN METAB OLIC PANEL anion gap 13.6 mmol/ L 14-22 low Not Available [facility] (Lab) [address] [place], [address], 10/02/2022 15:51:58 10/03/19 23 10/02/2022 COMPR EHENS KRISTEN METAB OLIC PANEL glucose 86 mg/dL 70-99 Not Available [facility] (Lab) [address] [place], [address], 10/02/2022 15:51:58 07/1110/02/2022 COMPR EHENS KRISTEN METAB OLIC PANEL BUN 10 mg/dL 8-19 Not Available [facility] (Lab) [address] [place], [address], 10/02/2022 15:51:58 10/03/19 23 10/02/2022 COMPR EHENS KRISTEN METAB OLIC PANEL creatinine 0.69 mg/dL 0.66-1 .25 Not Available [facility] (Lab) [address] [facility] [place], [address], 10/02/2022 15:51:58 10/03/19 23 10/02/2022 COMPR EHENS KRISTEN METAB OLIC PANEL GFR >60 Refer ence Range : Tinnie ge GFR Healt hy Adult : >60 mL/mi n/1.7 3 m2 Chron ic Kidne y Disea se: 15-60 mL/mi n/1.7 3 m2 Kidne y Failu re: <15/m L/min /1.73 m2 [email or web address] The MDRD study equat ion has not been valid ated in child yaneth <18 years of age; pregn ant women ; the elder ly >85 years of age; or in some racia l or ethni c subgr oups, such as Liana nics. Outsi de the valid ated brad eters , estim ated GFR is less accur ate, requi ring clini kim judgm ent on a case- by-ca se basis . Clini kim inter preta tion for other races and ages must be made by the clini froilan. The MDRD study equat ion has not been valid ated for the evalu ation of serum creat inine relat ed to nutri amaris l statu s or medic ation usage . For perso ns <18 years of age, a pedia tric GFR calcu lator is avail able on the F websi te: [email or web address] :[email or web address] [email or web address] [email or web address] rg/pr ofess ional s/kdo qi/gf r_cal culat or Not Available [facility] (Lab) [address] [place], [address], 10/02/2022 15:51:58 10/03/19 23 10/02/2022 COMPR EHENS KRISTEN METAB OLIC PANEL alkaline phosphatase 79 U/L 38-126 Not Available [facility] (Lab) [address] [place], [address], 10/02/2022 15:51:58 10/03/19 23 10/02/2022 COMPR EHENS KRISTEN METAB OLIC PANEL alanine aminotransfe rase 19 U/L 0-35 Not Available [facility] (Lab) [address] [place], [address], 10/02/2022 15:51:58 10/03/19 23 10/02/2022 COMPR EHENS KRISTEN METAB OLIC PANEL aspartate aminotransfe rase 25 U/L 15-37 Not Available [facility] (Lab) [address] [place], [address], 10/02/2022 15:51:58 10/03/19 23 10/02/2022 COMPR EHENS KRISTEN METAB OLIC PANEL bilirubin, total 0.40 mg/dL 0.20-1 .30 Not Available [facility] (Lab) [address] [place], [address], 10/02/2022 15:51:58 10/03/19 23 10/02/2022 COMPR EHENS KRISTEN METAB OLIC PANEL calcium 9.2 mg/dL 8.4-10 .2 Not Available [facility] (Lab) [address] [place], [address], 10/02/2022 15:51:58 10/03/19 23 10/02/2022 COMPR EHENS KRISTEN METAB OLIC PANEL total protein 7.7 g/dL 6.3-8. 2 Not Available [facility] (Lab) [address] [place], [address], 10/02/2022 15:51:58 10/03/19 23 10/02/2022 COMPR EHENS KRISTEN METAB OLIC PANEL albumin 4.4 g/dL 3.4-5. 0 Not Available [facility] (Lab) [address] [place], [address], 10/02/2022 15:51:58 10/03/19 23 10/02/2022 COMPR EHENS KRISTEN METAB OLIC PANEL globulin 3.3 g/dL 2.6-4. 2 Not Available [facility] (Lab) [address] [place], [address], 10/02/2022 15:51:58 10/03/19 23 10/02/2022 COMPR EHENS KRISTEN METAB OLIC PANEL A/G ratio 1.3 ratio 1.0-2. 0 Not Available [facility] (Lab) [address] [place], [address], 10/02/2022 15:51:58 10/03/19 23 10/02/2022 LIPID PANEL cholesterol 188 mg/dL 140-19 9 NIH JAYSHREE NSUS RECOM MENDA TION FOR JI STERO L: ADULT CHILD LOW RISK: <200 <170 BORDE RLINE : <200- 239 ----- HIGH RISK: >240 >200 Not Available [facility] (Lab) [address] [place], [address], 10/02/2022 15:52:02 10/03/1910/02/2022 LIPID PANEL triglyceride s 109 mg/dL 0-150 NIH JAYSHREE NSUS REPOR T RECOM MENDA TION FOR TRIGL YCERI MIKAL: ADULT CHILD LOW RISK: <150 ----- BODER LINE: 150-1 99 ----- HIGH RISK: >200 ----- Not Available [facility] (Lab) [address] [place], [address], 10/02/2022 15:52:02 10/03/19 23 10/02/2022 LIPID PANEL HDL cholesterol 60 mg/dL 40- Not Available [facility] (Lab) [address] [place], [address], 10/02/2022 15:52:02 10/03/19 23 10/02/2022 LIPID PANEL LDL cholesterol, calculated 106 mg/dL 0-130 NIH JAYSHREE NSUS REPOR T RECOM MENDA TIONS FOR LDL: ADULT CHILD LOW RISK <130 <110 (OPTI MAL LDL) <100 ----- BORDE RLINE : 130-1 59 ----- HIGH RISK: >160 >130 A TRIGL YCERI DE RESUL T >400 INVAL IDATE S THE CALCU LATIO N FOR LDL FRACT IONAT ION - THE LDL RESUL T WILL NOT BE REPOR BHAVIK. Not Available [facility] (Lab) [address] [place], [address], 10/02/2022 15:52:02 10/03/19 23 10/02/2022 HEMOG LOBIN A1C HA1C 5.3 % 4.0-6. 0 Diabe franchesca Scree reynaldo Crite dorys: <5.7% Consi stent with absen ce of diabe franchesca 5.7-6 .4% Consi stent with incre ased risk for diabe franchesca (pred iabet es) >OR=6 .5% Consi stent with diabe franchesca REFER ENCE: Diabe franchesca Care 2016, 39(Finley ppl.1 ):s13 -s22 Not Available [facility] (Lab) [address] [place], [address], 10/02/2022 19:50:20 02/26/20 24 02/27/2024 LIPID PANEL , STAND LUIS cholesterol, total 267 mg/dL <200 high Not Available [facility] [address] [place], [address], 02/27/2024 06:28:02 02/26/20 24 02/27/2024 LIPID PANEL , STAND LUIS HDL cholesterol 60 mg/dL > or = 50 normal Not Available [facility] [address] [place], [address], 02/27/2024 06:28:02 02/26/20 24 02/27/2024 LIPID PANEL , STAND LUIS triglyceride s 132 mg/dL <150 normal Not Available [address], [address], 02/27/2024 06:28:02 02/26/20 24 02/27/2024 LIPID PANEL , STAND LUIS LDL-choleste rol 180 mg/dL _(kim c) high Refer ence range : <100 Bertin able range <100 mg/dL for prima ry preve ntion ; <70 mg/dL for patie nts with CHD or diabe tic patie nts with > or = 2 CHD risk facto rs. LDL-C is now calcu lated using the Priscila n-Hop kins calcu latmarilyn n, which is a valid ated novel metho d provi ding karla r accur acy than the Fried maame equat ion in the estim ation of LDL-C . Priscila saldana SS et al. BUTCH. 2013; 310(1 9): 2061- 2068 (http ://ed ucati on.Qu estDi Astaro. com/f aq/FA Q164) Not Available [address], [address], 02/27/2024 06:28:02 02/26/20 24 02/27/2024 LIPID PANEL , STAND LUIS chol/HDLC ratio 4.5 (calc ) <5.0 normal Not Available [address], [address], 02/27/2024 06:28:02 02/26/20 24 02/27/2024 LIPID PANEL , STAND LUIS non HDL cholesterol 207 mg/dL _(kim c) <130 high For patie nts with diabe franchesca plus 1 major ASCVD risk facto r, treat ing to a non-H DL-C goal of <100 mg/dL (LDL- C of <70 mg/dL ) is consi dered a thera peuti c optio n. Not Available [facility] [address] [place] [address], [address], 02/27/2024 06:28:02 02/26/20 24 02/27/2024 TSH+F REE T4 TSH 3.56 mIU/L normal Refer ence Range > or = 20 Years 0.40- 4.50 Pregn fartun Range s First trime ster 0.26- 2.66 Secon d trime ster 0.55- 2.73 Third trime ster 0.43- 2.91 Not Available [address], [address], 02/27/2024 06:28:03 02/26/20 24 02/27/2024 TSH+F REE T4 T4, free 1.1 NG/dL 0.8-1. 8 normal Not Available [address], [address], 02/27/2024 06:28:03 02/26/20 24 02/27/2024 COMPR EHENS KRISTEN METAB OLIC PANEL glucose 84 mg/dL 65-99 normal Fasti ng refer ence inter karissa Not Available [address], [address], 02/27/2024 06:28:04 02/26/20 24 02/27/2024 COMPR EHENS KRISTEN METAB OLIC PANEL urea nitrogen (BUN) 12 mg/dL 7-25 normal Not Available [address], [address], 02/27/2024 06:28:04 02/26/20 24 02/27/2024 COMPR EHENS KRISTEN METAB OLIC PANEL creatinine 0.69 mg/dL 0.50-0 .97 normal Not Available [address], [address], 02/27/2024 06:28:04 02/26/20 24 02/27/2024 COMPR EHENS KRISTEN METAB OLIC PANEL eGFR 113 mL/mi n/1.7 3m2 > or = 60 normal Not Available [address] [address] [place], [address], 02/27/2024 06:28:04 02/26/20 24 02/27/2024 COMPR EHENS KRISTEN METAB OLIC PANEL BUN/creatini ne ratio SEE NOTE: (calc ) 6-22 Not Repor bhavik: BUN and Creat inine are withi n refer ence range . Not Available [address], [address], 02/27/2024 06:28:04 02/26/20 24 02/27/2024 COMPR EHENS KRISTEN METAB OLIC PANEL sodium 138 mmol/ L 135-14 6 normal Not Available [address] [address] [facility] [place], [address], 02/27/2024 06:28:04 02/26/20 24 02/27/2024 COMPR EHENS KRISTEN METAB OLIC PANEL potassium 4.6 mmol/ L 3.5-5. 3 normal Not Available [address] [address] [address] , [place], [address], 02/27/2024 06:28:04 02/26/20 24 02/27/2024 COMPR EHENS KRISTEN METAB OLIC PANEL chloride 103 mmol/ L 98-110 normal Not Available [address], [address], 02/27/2024 06:28:04 02/26/20 24 02/27/2024 COMPR EHENS KRISTEN METAB OLIC PANEL carbon dioxide 26 mmol/ L 20-32 normal Not Available [address] [address] [place], [address], 02/27/2024 06:28:04 02/26/20 24 02/27/2024 COMPR EHENS KRISTEN METAB OLIC PANEL calcium 9.3 mg/dL 8.6-10 .2 normal Not Available [facility] [address] [address] [place], [address], 02/27/2024 06:28:04 02/26/20 24 02/27/2024 COMPR EHENS KRISTEN METAB OLIC PANEL protein, total 7.3 g/dL 6.1-8. 1 normal Not Available [address], [address], 02/27/2024 06:28:04 02/26/20 24 02/27/2024 COMPR EHENS KRISTEN METAB OLIC PANEL albumin 4.5 g/dL 3.6-5. 1 normal Not Available [address], [address], 02/27/2024 06:28:04 02/26/20 24 02/27/2024 COMPR EHENS KRISTEN METAB OLIC PANEL globulin 2.8 g/dL_ (calc ) 1.9-3. 7 normal Not Available [address], [address], 02/27/2024 06:28:04 02/26/20 24 02/27/2024 COMPR EHENS KRISTEN METAB OLIC PANEL albumin/glob ulin ratio 1.6 (calc ) 1.0-2. 5 normal Not Available [address], [address], 02/27/2024 06:28:04 02/26/20 24 02/27/2024 COMPR EHENS KRISTEN METAB OLIC PANEL bilirubin, total 0.3 mg/dL 0.2-1. 2 normal Not Available [address], [address], 02/27/2024 06:28:04 02/26/20 24 02/27/2024 COMPR EHENS KRISTEN METAB OLIC PANEL alkaline phosphatase 93 U/L 31-125 normal Not Available [address], [address], 02/27/2024 06:28:04 02/26/20 24 02/27/2024 COMPR EHENS KRISTEN METAB OLIC PANEL AST 18 U/L 10-30 normal Not Available [address], [address], 02/27/2024 06:28:04 02/26/20 24 02/27/2024 COMPR EHENS KRISTEN METAB OLIC PANEL ALT 22 U/L 6-29 normal Not Available [address], [address], 02/27/2024 06:28:04 02/26/20 24 02/27/2024 CBC (INCL UDES DIFF/ PLT) white blood cell count 9.2 thous and/u L 3.8-10 .8 normal Not Available [address], [address], 02/27/2024 06:28:06 02/26/20 24 02/27/2024 CBC (INCL UDES DIFF/ PLT) red blood cell count 4.94 denise on/uL 3.80-5 .10 normal Not Available [address], [address], 02/27/2024 06:28:06 02/26/20 24 02/27/2024 CBC (INCL UDES DIFF/ PLT) hemoglobin 14.1 g/dL 11.7-1 5.5 normal Not Available [facility] [address], [address], 02/27/2024 06:28:06 02/26/20 24 02/27/2024 CBC (INCL UDES DIFF/ PLT) hematocrit 42.9 % 35.0-4 5.0 normal Not Available [address], [address], 02/27/2024 06:28:06 02/26/20 24 02/27/2024 CBC (INCL UDES DIFF/ PLT) MCV 86.8 fL 80.0-1 00.0 normal Not Available [facility] - [address], [address], 02/27/2024 06:28:06 02/26/20 24 02/27/2024 CBC (INCL UDES DIFF/ PLT) MCH 28.5 pg 27.0-3 3.0 normal Not Available [facility] [address], [address], 02/27/2024 06:28:06 02/26/20 24 02/27/2024 CBC (INCL UDES DIFF/ PLT) MCHC 32.9 g/dL 32.0-3 6.0 normal For adult s, a sligh t decre ase in the calcu lated MCHC value (in the range of 30 to 32 g/dL) is most likel y not clini kristen signi fican t; mervat er, it shoul d be inter prete d with cauti on in [facility] n with other red cell brad eters and the patie nt's clini kim condi tion. Not Available [facility] [address], [address], 02/27/2024 06:28:06 02/26/2002/27/2024 CBC (INCL UDES DIFF/ PLT) RDW 12.6 % 11.0-1 5.0 normal Not Available [facility] [address], [address], 02/27/2024 06:28:06 02/26/20 24 02/27/2024 CBC (INCL UDES DIFF/ PLT) platelet count 340 thous and/u L 140-40 0 normal Not Available [facility] [address], [address], 02/27/2024 06:28:06 02/26/20 24 02/27/2024 CBC (INCL UDES DIFF/ PLT) MPV 11.3 fL 7.5-12 .5 normal Not Available [facility] [address], [address], 02/27/2024 06:28:06 02/26/20 24 02/27/2024 CBC (INCL UDES DIFF/ PLT) absolute neutrophils 6201 cells /uL 1500-7 800 normal Not Available [address], [address], 02/27/2024 06:28:06 02/26/20 24 02/27/2024 CBC (INCL UDES DIFF/ PLT) absolute lymphocytes 2272 cells /uL 850-39 00 normal Not Available [address], [address], 02/27/2024 06:28:06 02/26/2002/27/2024 CBC (INCL UDES DIFF/ PLT) absolute monocytes 607 cells /uL 200-95 0 normal Not Available [address], [address], 02/27/2024 06:28:06 02/26/20 24 02/27/2024 CBC (INCL UDES DIFF/ PLT) absolute eosinophils 74 cells /uL 15-500 normal Not Available [address], [address], 02/27/2024 06:28:06 02/26/20 24 02/27/2024 CBC (INCL UDES DIFF/ PLT) absolute basophils 46 cells /uL 0-200 normal Not Available [address], [address], 02/27/2024 06:28:06 02/26/20 24 02/27/2024 CBC (INCL UDES DIFF/ PLT) neutrophils 67.4 % normal Not Available [address], [address], 02/27/2024 06:28:06 02/26/20 24 02/27/2024 CBC (INCL UDES DIFF/ PLT) lymphocytes 24.7 % normal Not Available [facility] [address], [address], 02/27/2024 06:28:06 02/26/20 24 02/27/2024 CBC (INCL UDES DIFF/ PLT) monocytes 6.6 % normal Not Available [address], [address], 02/27/2024 06:28:06 02/26/20 24 02/27/2024 CBC (INCL UDES DIFF/ PLT) eosinophils 0.8 % normal Not Available [facility] [address], [address], 02/27/2024 06:28:06 02/26/20 24 02/27/2024 CBC (INCL UDES DIFF/ PLT) basophils 0.5 % normal Not Available [address], [address], 02/27/2024 06:28:06 02/26/20 24 02/27/2024 HEPAT ITIS C AB W/REF L TO HCV RNA, QN, PCR hepatitis C antibody NON-RE ACTIVE non-re active normal HCV antib epi was non-r eacti ve. There is no labor atory evide nce of HCV infec tion. In most cases , no furth er actio n is requi red. Howev er, if recen t HCV expos ure is suspe cted, a test for HCV RNA (test code 68112 ) is sugge sted. For addit ional infor ever saldana pleas e refer to http: //desiree whalen stdia gnost ics.c om/fa q/FAQ 22v1 (This link is being provi ded for infor ever ellis/ educa amaris l purpo ses only. ) Not Available [address], [address], 02/27/2024 06:28:07 02/26/20 24 02/27/2024 HEMOG LOBIN A1C hemoglobin A1C 5.6 %_of_ total _HGB <5.7 normal For the purpo se of screlidia jacobs for the prese nce of diabe franchesca: <5.7% Consi stent with the absen ce of diabe franchesca 5.7-6 .4% Consi stent with incre ased risk for diabe franchesca (pred iabet es) > or =6.5% Consi stent with diabe franchesca This assay resul t is consi stent with a decre ased risk of diabe franchesca. Curre ntly, no conse nsus exist s marcy lakhani use of hemog lobin A1c for diagn osis of diabe franchesca in child yaneth. Accor ding to Ameri can Diabe franchesca Assoc iatio n (ADA) guide lines , hemog lobin A1c <7.0% repre sents optim al contr ol in non-p regna nt diabe tic patie nts. Diffe rent metri cs may apply to speci fic patie nt popul ation s. Stand ards of Medic al Care in Diabe franchesca(A DA). Not Available [facility] [address] [place], [address], 02/27/2024 06:28:08 10/26/19 23 10/25/2022 MR, angio gram, head, w/o contr ast No observ ation record ed. [email or web address] [place] [address] (Imaging) [address] [place] [address] [address], [place], [address], 10/26/2022 10:15:28 Result Notes None recorded. Problems Name Problem SNOMED Code Status Onset Date Resolution Date Notes Provider Name and Address Organization Details Recorded Time Pharyngiti s 043406507 Completed Not Available [facility] 3 06:01:20 Allergy to drug 838590744 Active Not Available [facility] 3 06:01:20 Delivery normal 50040162 Completed Not Available [facility] 3 06:01:20 Hyperlipid emia 81463745 Active [address] APRN [address] [facility], [facility] [address], [place], [address] , [facility] [employer] [facility] 4 12:49:54 Normal grief reaction 056666878 Active 2021 Not Available [facility] 3 06:01:20 Obesity 833541234 Active 2021 Marci Elias APRN [address] [facility], [address] [place] [address], [place], [address] , [facility] 4 12:49:57 Anxiety 22802559 Active 2021 Marci Elias APRN [address] [facility], [address] [place] [address], [place], [address] , [facility] 4 12:49:49 Purpuric rash 708548559 Active [address] [facility], [address] [place] [address], [place], [address] , [facility] 3 12:14:49 Psoriasis 8399675 Active 2022 Marci Elias APRN [address] [facility], [address], [address] , [facility] 4 12:50:00 Acute urinary tract infection 274013878 Active 2022 Myra marquez, [facility] 3 11:42:22 Problem Notes None recorded. Medical Equipment None Reported. Allergies No known drug allergies Medications Name Sig Start Date Stop Date Status Note LastModified by Organization Details LastModified Time Prescriptio n - Prior Authorizati on Request 07/13 completed Not Available Not Available Not Available amoxicillin 500 mg capsule 06/26 completed Not Available Not Available Not Available clindamycin HCl 300 mg capsule 09/03 completed Not Available Not Available Not Available azithromyci n 250 mg tablet TAKE 2 TABLETS BY MOUTH TODAY, THEN TAKE 1 TABLET DAILY FOR 4 DAYS 06/26 completed Not Available Not Available Not Available citalopram 10 mg tablet TAKE 1 TABLET BY MOUTH EVERY DAY 08/09 completed Not Available Not Available Not Available hydrocodone 5 mg-acetamin ophen 325 mg tablet TAKE 1 TABLET BY MOUTH EVERY 4-6 HOURS NEEDED FOR PAIN 06/26 completed Not Available Not Available Not Available phenazopyri dine 200 mg tablet active Not Available Not Available Not Available Tubersol 5 tub. unit/0.1 mL intradermal injection solution active Not Available Not Available Not Available penicillin V potassium 500 mg tablet TAKE 1 TABLET BY MOUTH FOUR TIMES A DAY UNTIL ALL COMPLETED active Not Available Not Available No t Available metronidazo le 500 mg tablet 06/26 completed Not Available Not Available Not Available ciprofloxac in 500 mg tablet active Not Available Not Available Not Available tramadol 50 mg tablet active Not Available Not Available No t Available triamcinolo ne acetonide 0.1 % topical cream 06/21 completed Not Available Not Available Not Available amoxicillin 500 mg tablet Take 1 tablet 3 times a day by oral route for 7 days. 08/29 completed Not Available Not Available Not Available amoxicillin 875 mg tablet TAKE 1 TABLET BY MOUTH NOW THEN 1 TABLET TWICE A DAY UNTIL GONE 07/13 completed Not Available Not Available Not Available lorazepam 0.5 mg tablet TAKE 1/2 TO 1 TABLET BY MOUTH TWICE DAILY NEEDED active Not Available Not Available No t Available hydrocortis one 2.5 % lotion 06/21 completed Not Available Not Available Not Available hydrocodone 7.5 mg-acetamin ophen 325 mg tablet TAKE 1 TABLET BY MOUTH EVERY 4 TO 6 HOURS NEEDED FOR PAIN 02/05 completed Not Available Not Available Not Available pantoprazol e 40 mg tablet,je yed release TAKE 1 TABLET BY MOUTH EVERY DAY AT BEDTIME X 4 WEEKS 06/26 completed Not Available Not Available Not Available pravastatin 20 mg tablet Take 1 tablet every day by oral route as directed, for hyperlipi demia. active Not Available Not Available No t Available norethindro ne acetate 1 mg-ethinyl estradiol 20 mcg tablet Take 1 tablet every day by oral route. 11/25 completed Not Available Not Available Not Available methylpredn isolone 4 mg tablets in a dose pack take as directed active Not Available Not Available No t Available Zoloft 25 mg tablet Take 1 tablet every day by oral route. active Not Available Not Available No t Available escitalopra m 5 mg tablet TAKE 1 TABLET BY MOUTH EVERY DAY AT BEDTIME 02/05 completed Not Available Not Available Not Available nitrofurant oin monohydrate /macrocryst als 100 mg capsule TAKE 1 CAPSULE BY MOUTH EVERY 12 HOURS 10/02 completed Not Available Not Available Not Available multivitami n 02/26 completed Not Available Not Available Not Available BD Ultra-Fine Danna Pen Needle 32 gauge x 5/32 USE DIRECTED TO INJECT SAXENDA 07/16 completed Not Available Not Available Not Available Probiotic 02/26 completed Not Available Not Available Not Available loratadine (bulk) 02/26 completed Not Available Not Available Not Available Saxenda 3 mg/0.5 mL (18 mg/3 mL) subcutaneou s pen injector active Not Available Not Available Not Available ID NOW COVID-19 Test Kit TEST DIRECTED TODAY 11/20 completed Not Available Not Available Not Available Vitals Date Recorded Body height Body mass index (BMI) Body weight Body temperature Heart rate Oxygen saturation Oxygen saturation in Arterial blood by Pulse oximetry Systolic And Diastolic Provider Name and Address Organization Details Last Updated DateTime 3 167.64 cm 33.2 kg/m2 74343.0 3 g 98 [degF] 82 /min 97 % 97 % 124/78 mm[Hg] Priscila Calix MA [facility] [employer] [facility] 3 11:30:39 Date Recorded Body height Body mass index (BMI) Body weight Body temperature Heart rate Oxygen saturation Oxygen saturation in Arterial blood by Pulse oximetry Systolic And Diastolic Provider Name and Address Organization Details Last Updated DateTime 4 167.64 cm 33.6 kg/m2 21727.2 1 g 97.7 [degF] 73 /min 98 % 98 % 124/78 mm[Hg] Alexandria Gaviria MA [facility] [employer] [facility] 4 08:36:46 Date Recorded Body height Body mass index (BMI) Body weight Body temperature Heart rate Oxygen saturation Oxygen saturation in Arterial blood by Pulse oximetry Systolic And Diastolic Provider Name and Address Organization Details Last Updated DateTime 3 167.64 cm 31.5 kg/m2 27483.5 1 g 98 [degF] 90 /min 98 % 98 % 124/78 mm[Hg] Priscila Calix MA [facility] [employer] [facility] 3 11:48:18 Date Recorded Body height Body mass index (BMI) Body weight Body temperature Heart rate Oxygen saturation Oxygen saturation in Arterial blood by Pulse oximetry Systolic And Diastolic Provider Name and Address Organization Details Last Updated DateTime 3 167.64 cm 31.3 kg/m2 05351.9 2 g 97.7 [degF] 92 /min 98 % 98 % 126/78 mm[Hg] Priscila Calix MA [facility] [employer] [facility] 3 10:28:02 Date Recorded Body height Body mass index (BMI) Body weight Body temperature Heart rate Oxygen saturation Oxygen saturation in Arterial blood by Pulse oximetry Systolic And Diastolic Provider Name and Address Organization Details Last Updated DateTime 4 167.64 cm 34.5 kg/m2 39955.7 7 g 98.2 [degF] 81 /min 98 % 98 % 126/84 mm[Hg] Oma Mahmood RN [facility] [employer] [facility] 4 10:07:10 Social History Question Answer Notes LastModified by Organizat ion Details LastModified Time Tobacco Smoking Status Never Smoker Not Available [facility] 05/23/2022 05:54:44 What Is Your Level Of Caffeine Consumption? Heavy Information not available 06/26/2022 How Much Tobacco Do You Chew? None [id number] Information not available 05/23/2022 In The 14 Days Before Symptom Onset, Have You Had Close Contact With A Laboratory-confir med COVID-19 While That Case Was Ill? No [id number] Information not available 05/23/2022 In The 14 Days Before Symptom Onset, Have You Had Close Contact With A Person Who Is Under Investigation For COVID-19 While That Person Was Ill? No [id number] Information not available 05/23/2022 What Type Of Diet Are You Following? REGULAR [id number] Information not available 05/23/2022 Which Illicit Or Recreational Drugs Have You Used? None [id number] Information not available 05/23/2022 What Is The Highest Grade Or Level Of School You Have Completed Or The Highest Degree You Have Received? [id number] Information not available 06/26/2022 Have There Been Any Changes To Your Family Or Social Situation? No Information no t available 06/26/2022 What Is The Fluoride Status Of Your Home? Unknown Information not available 06/26/2022 Are There Any Guns Present In Your Home? Yes Information not available 06/26/2022 Do You Use Insect Repellent Routinely? Yes Information not available 06/26/2022 Where Do You Live? [facility] Information not available 06/26/2022 What Was The Date Of Your Most Recent Tobacco Screening? 07/17/2023 [email or web address] Information not available 07/17/2023 Do You Have Any Pets? Yes Information not available 06/26/2022 What Is Your Relationship Status? Information not available 06/26/2022 Do You Use Your Seat Belt Or Car Seat Routinely? Yes Information not available 06/26/2022 Do You Have Smoke And Carbon Monoxide Detectors In Your Home? Yes Information not available 06/26/2022 Are You Passively Exposed To Smoke? No Information no t available 06/26/2022 Are There Any Smokers In Your House? No Information not available 06/26/2022 How Much Tobacco Do You Smoke? No Information not available 02/26/2024 Do You Use Sunscreen Routinely? Yes Information not available 06/26/2022 Have You Recently Traveled Abroad? No Information not available 10/02/2022 Do You Have Any Dietary Restrictions? No Information not available 06/26/2022 Sex: Unknown Functional Status Question Answer Note LastModified by Organizat ion Details LastModified Time Do you use any illicit or recreational drugs? No Information not available 06/26/2022 Do you or have you ever used any other forms of tobacco or nicotine? No Information not available 06/26/2022 What is your level of alcohol consumption? Occasional [id number] Information not available 05/23/2022 Do you or have you ever used smokeless tobacco? Never used smokeless tobacco Information not available 02/26/2024 Are you currently employed? 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 Moderate [id number] Information not available 05/23/2022 Mental Status Question Answer Note LastModified by Organization D etails LastModified Time Do you feel stressed (tense, restless, nervous, or anxious, or unable to sleep at night)? [id number] Information not available 06/26/2022 Family History Relationship Description Onset Age of this Age Resolved Age Notes LastModified by Organization Details LastModified Time Maternal Grandfather Family history of stroke [email or web address] Not available 09:43:11 Maternal Grandfather Heart disease [id number] Not available 05/23/2022 05:56:44 Paternal Grandfather Hypertensive disorder [id number] Not available 05/23/2022 05:56:44 Father Chronic obstructive pulmonary disease [id number] Not available 09:43:11 Maternal Grandmother Malignant neoplasm of lung Not available 09:43:11 Maternal Grandmother Malignant tumor of colon [id number] Not available 09:43:11 Paternal Grandmother Aneurysm [id number] Not available 02/26/2024 09:43:11 Medical History Condition Response BLINDNESS N NERVE DISEASE N RHEUMATIC FEVER N BLADDER PROBLEMS N KIDNEY STONES N MRSA N OTHER # 1 N POLIO N LUNG DISEASE/DISORDER N HISTORY OF DRUG ABUSE N RADIATION / CHEMOTHERAPY N COPD N Other # 2 N BLOOD DISEASES N EAR OR HEARING PROBLEMS N MUMPS N SHINGLES N DEPRESSION (INCLUDING POST ) N BOWEL PROBLEMS N FAILED BACK SYNDROME N STROKE/TIA N ULCERS N BENIGN PROSTATIC HYPERPLASIA N MEASLES N HYPOTENSION N MYOCARDIAL INFARCTION N OBESITY N GERD/NAUSEA N ANEURYSM N URINARY/BLADDER/KIDNEY PROBLEMS N CORONARY ARTERY DISEASE (CAD) N Do you have Advance directive? N ADDICTION CONCERNS N Impotence N ENDOMETRIOSIS N USE OF BLOOD THINNERS N SKIN PROBLEMS N GASTROINTESTINAL DISORDER N PERIPHERAL VASCULAR DISEASE N MUSCLE,JOINT OR BONE PROBLEMS N GASTROINTESTINAL BLEEDING N BLOOD CLOTS N ASTHMA N CATARACTS N Abdominal Pain N ERECTILE DYSFUNCTION N ARTERIAL INSUFFICIENCY N VARICOSITIES N GI PROBLEMS N Low Testosterone N INFERTILITY N AIDS/HIV N CHEMOTHERAPY / RADIATION N LIVER DISEASE N MALE HYPOGONADISM N HYPERTENSION N Deficiency N TOURETTE'S N ANXIETY DISORDER Y BLOOD TRANSFUSION N ANEMIA/BLOOD DISORDER N CHRONIC EAR INFECTIONS N TUBERCULOSIS N GLAUCOMA N FOOT PROBLEM N DIVERTICULITIS N SLEEP APNEA N CHICKENPOX N BACK INJECTIONS N ALLERGIES/HAYFEVER N INFECTIOUS DISEASE N PROSTATE N HEART ARRHYTHMIA N ESRD N INSOMNIA N HIGH CHOLESTEROL / HYPERLIPIDEMIA Y EYE PROBLEMS N HYPERTHYROIDISM N PVD N EDEMA N CHRONIC PAIN SYNDROME N HYPOTHYROIDISM N CONSTIPATION N CAROTID BLOCKAGE N BACK / NECK PROBLEMS N HAVE YOU BEEN HOSPITALIZED OR SEEN IN [facility] IN THE PAST YEAR ? N ATHEROSCLEROSIS N BREAST PROBLEMS N DIALYSIS N POLYCYSTIC OVARIES N ECZEMA N OSTEOPOROSIS N ARTHRITIS N NO SIGNIFICANT PAST MEDICAL HISTORY N APPENDICITIS N DIABETES, TYPE N BAD TEETH N VON WILLIBRAND'S DISEASE N ENT N HEARTBURN / REFLUX N GI N AUTISM SPECTRUM DISORDER (ASD) N POST LAMINECTOMY SYNDROME N HEPATITIS / LIVER DISEASE N GOUT N SLEEP DISORDER N ALZHEIMER'S DISEASE N Brain Problems N DEMENTIA N HERPES N SEIZURES/EPILEPSY N HEADACHES/MIGRAINES N VASCULAR DISEASE N PACEMAKER N DIZZINESS N HEART DISEASE/HEART PROBLEMS N KIDNEY DISEASE N MULTIPLE SCLEROSIS N NEUROPSYCHOLOGICAL N CANCER: SPECIFY N CARDIAC ARRHYTHMIA N ATRIAL FIBRILLATION N Gall Stones N PULMONARY EMBOLISM N AUTOIMMUNE DISEASE N Gynecological History Statement/Question Response How many live births 2 Abnormal Pap N Date of Last Colonoscopy Date of Last Mammogram Date of LMP 06/29/2023 Date of Last Pap Current Control Method None Obstetrics History GPAL:G 2 P 2 0 0 2 Type Value Multiple Births 0 Full Term 2 Induced 0 Spontaneous 0 Premature 0 Living 2 Ectopics 0 Total 2 Immunizations Vaccine Type Date Status Note Provider Nam e and Address Organization Details Recorded Time SARS-COV-2 (COVID-19) vaccine, UNSPECIFIED 1 completed Marci Elias APRN [address], [address], [place], [address], [employer] [facility] GIVTED 01/16/2024 09:28:39 SARS-COV-2 (COVID-19) vaccine, UNSPECIFIED 2 completed Marci Elias APRN [address], [address], [place], [address], [employer] [facility] GIVT[facility] 01/16/2024 09:28:39 COVID-19, mRNA, LNP-S, PF, 30 mcg/0.3 mL dose 1 completed Marci Elias APRN [address], [address], [place], [address], [facility] [employer] [place] [employer] [facility] 01/16/2024 09:28:39 COVID-19, mRNA, LNP-S, PF, 30 mcg/0.3 mL dose, danilo-sucrose 2 completed Marci Elias APRN [address] [facility], [facility] [address], [place], [address], [facility] [employer] 01/16/2024 09:28:39 TST-PPD intradermal 4 completed Not Available [facility] [employer] 05/23/2022 06:07:37 Past Encounters Encounter ID Performer Location Encounter Start Date Encounter Closed Date Diagnosis/Indication Diagnosis SNOMED-CT Code Diagnosis ICD10 Code Diagnosis Note [id number] [facility] [address] , [place] [address] 08/09/2020 00:00:00 08/09/2020 18:04:14 [id number] Mary Padilla MD [address] [place] [address] 10/13/2021 00:00:00 10/19/2021 18:27:55 [id number] [facility] [address] [place] [address] 11/20/2021 00:00:00 11/20/2021 12:52:05 [id number] [facility] [address] [place] [address] 12/18/2021 00:00:00 12/19/2021 09:03:27 [id number] Marilyn pearl MD [facility] Internal Med [facility] [address] [facility], [address] [place] [address] 06/26/2022 11:18:00 06/26/2022 12:21:45 Hyperlipidemia 99187942 E78.5 Recheck labs, is not currently on meds Purpuric rash 864128814 D69.2 Check SHANTI and CBCRash does appear to be resolving on its ownIf recurs will plan to send her back to the dermatolog ist Obesity 795131800 E66.9 recommend healthy, well balanced mealsfocus on lean meats, fresh vegetables , fresh fruits, whole grainsredu ce fast/proce ssed foods or eating out to no more than 1-2 times per weekaim to get 30 min of exercise most days of the week- walking is a great choicealso recommend resistance training 2-3 times per week Restart Saxenda per her request- she is aware of side effects, risks, benefitsWe did talk about switching to Wegovy as an option when she runs out of current med, I did show her how to use the device today in case she wants to switch, she will call if she does pt is aware of side effects, risks, benefitspt denies any personal or family history of MEN II or MTC, denies and personal history of pancreatit ispt knows to call the office if any severe n/v or abdominal pain Family his tory of cancer of colon 615083816 Z80.0 Get colonoscop y Family his tory of aneurysm of blood vessel of brain [id number] 8088762 Z82.49 Get MRA Psoriasis 2740324 L40.9 Has seen dermatolog y in the past, no meds currently Anxiety 59075901 F41.9 Stable off medication s at this time, does not want to go back on meds Support provided to patient today Call office if any change in mood or behavior [id number] Marilyn pearl MD [facility] Internal Med [facility] [address] [facility] [place] [address] 10/02/2022 11:40:05 10/02/2022 12:05:51 Hyperlipidemia 60378708 E78.5 on pravastati nrecheck labs Purpuric rash 270310519 D69.2 now resolvedAN A was negativeIf recurs will plan to send her back to the dermatolog ist Obesity 588996871 E66.9 recommend healthy, well balanced mealsfocus on lean meats, fresh vegetables , fresh fruits, whole grainsredu ce fast/proce ssed foods or eating out to no more than 1-2 times per weekaim to get 30 min of exercise most days of the week- walking is a great choicealso recommend resistance training 2-3 times per week Continue Saxenda per her request- she is aware of side effects, risks, benefits pt is aware of side effects, risks, benefitspt denies any personal or family history of MEN II or MTC, denies and personal history of pancreatit ispt knows to call the office if any severe n/v or abdominal pain Family his tory of cancer of colon 292206876 Z80.0 Next cscope due 07/2027 Family his tory of aneurysm of blood vessel of brain 7691316614 2404842 Z82.49 Get MRAER precaution s Psoriasis 7641593 L40.9 Has seen dermatolog y in the past, no meds currently Anxiety 89272300 F41.9 Stable off medication s at this time, does not want to go back on meds Support provided to patient today Call office if any change in mood or behavior Diabetes m ellitus screening 402957164 Z13.1 [id number] Marilyn pearl MD [facility] Internal Med [address] [facility], [address] [place] [address] 02/05/2023 10:19:31 02/05/2023 11:17:51 Hyperlipidemia 03398674 E78.5 on pravastati n Purpuric rash 115959963 D69.2 now resolvedAN A was negativeIf recurs will plan to send her back to the dermatolog ist Obesity 039511415 E66.9 recommend healthy, well balanced mealsfocus on lean meats, fresh vegetables , fresh fruits, whole grainsredu ce fast/proce ssed foods or eating out to no more than 1-2 times per weekaim to get 30 min of exercise most days of the week- walking is a great choicealso recommend resistance training 2-3 times per week Continue Saxenda per her request- she is aware of side effects, risks, benefits pt is aware of side effects, risks, benefitspt denies any personal or family history of MEN II or MTC, denies and personal history of pancreatit ispt knows to call the office if any severe n/v or abdominal pain Family his tory of cancer of colon 390922779 Z80.0 Next cscope due 07/2027 Family his tory of aneurysm of blood vessel of brain 1147725396 4161965 Z82.49 MRA done 10/2022- no evidence of aneurysm Psoriasis 2708828 L40.9 Has seen dermatolog y in the past, no meds currently Anxiety 60983417 F41.9 Stable off medication s at this time, does not want to go back on medsCall office if any change in mood or behavior [id number] Marilyn pearl MD [facility] Internal Med [facility] [address] , [place] [address] 07/17/2023 08:26:52 07/17/2023 09:00:26 Hyperlipidemia 09871669 E78.5 Obesity 796869864 E66.9 [id number] Marilyn pearl MD [facility] Primary Care [facility] [address] [facility] [address] [address] [place] [address] 02/26/2024 09:41:04 02/26/2024 10:39:20 Hyperlipidemia 06803611 E78.5 Hepatitis C screening 41 6821299 Z11.59 Gynecologi c examination 57396835 Z01.419 Health Concerns Section Related Observation LastModified by Organization Detai ls LastModified Time None Recorded Concern Status LastModified by Organization Details LastModified Time None Recorded Advance Directives Directive None Recorded Payers Insurance Date Sequence Insurance Name Policy Number Policy Dailey Covered Member ID Dailey Member ID Guarantor Name 07/09/2023 1 [employer] (EPO) [id number] Mauricio Adame [id number] Karli Adame 03/16/2024 1 [facility] Grey Adame [id number] Karli Adame Notes Date Note Type Note Provider Name and Address Organization Details Recorded Time 06/26/2022 text/html Karli presents brittney gonzalezay to establish care. Previous PCP- Nia Ariasviewerobert PMFSH. , works as a quality worker. Past hx:HLD- has been on meds in the past, is not currently taking itObesity- has been on saxenda in the past, wants to restart (ran out of needles but has meds)anxiety- now off lexapro, stable, denies any SI/HI todayPsoriasis- has seen derm in the past, no medsfamily hx colon cancerfamily hx brain aneurysm She reports she was previously on a statin but is not currently taking it and has not been for about 6 months. She would like to restart her Saxenda. She has medication at home but just needs a refill on her needles. She denies any personal or family history of thyroid cancer, denies any personal history of pancreatitis. She reports she stopped taking her Lexapro in April. She has been doing well without it. She is having some sadness as it is coming up to the 1 year anniversary of her mom's passing. She feels like she is coping with this okay. She has good support in her . She denies any SI or HI today. She does not feel like she needs medication at this time. She does have family history of colon cancer in her grandmother and family history of brain aneurysm in another grandmother. She has never had baseline screening colonoscopy and she has never been screened for aneurysm. She is interested in getting both of those done. Today she complains of a pinpoint rash to the bilateral lower legs. It started about a week ago. It did not itch or have any drainage. She has no known new soaps or scented products. No known environmental exposure. She reports she does get frequent razor burn but this was different in that it did not itch. It does seem to be resolving and she reports that it is mostly gone at this point. Did not take anything [id number] for it. Kylie Virgen, HYDRAULIC CONTROLS TECHNICIAN-C [address] [facility], [facility] [address], [place], [address], [facility] [employer] 06/26/2022 14:01:29 10/02/2022 text/html Karli presents brittney calabrese for follow up. Last visit, we started her back on the Saxenda. She has been tolerating this well. She is up to the 3 mg dose. She has not had any side effects. She is down about 11 lb. She reports that she has been getting some weight training in twice weekly. We also restarted her back on her cholesterol pill. She has been tolerating that without issue. She is due for repeat check on her cholesterol panel. She did have her colonoscopy. She is due for another 1 in 5 years. She has not gotten her MRA of her head. She reports she does want to get that done but needs a new order. She is currently asymptomatic with this. Anxiety remains well controlled off medication. She denies any SI or HI today. KylieMIGDALIA Joyner-Francesco [address], [place], [address], [employer] 10/02/2022 13:24:56 02/05/2023 text/html Karli presents t bharati for follow up. She continues on the Saxenda, she is tolerating that without difficulty. She is possibly interested in Zepbound when it comes out. Reports she is getting new health insurance so she will have to check with them at the beginning of the year. She is tolerating her cholesterol medication without difficulty. She did get her MRA. There is no evidence of aneurysm on scan. Anxiety remains stable off of anxiety medications. She declines flu vaccine today. YUKO Landers [address], [address], [place], [address], [employer] 02/05/2023 11:13:50 07/17/2023 text/html Karli presents t bharati to establish care. She states that she has not had a provider since March. She states that her anxiety is under control and that she is going to counseling weekly. She is no longer on Saxenda as it was not affective with her not doing her part so she stopped taking it. 02/05/2023shannon presents today for follow up. She continues on the Saxenda, she is tolerating that without difficulty. She is possibly interested in Zepbound when it comes out. Reports she is getting new health insurance so she will have to check with them at the beginning of the year. She is tolerating her cholesterol medication without difficulty. She did get her MRA. There is no evidence of aneurysm on scan. Anxiety remains stable off of anxiety medications. She declines flu vaccine today. Marci Elias APRN [address], [place], [address], [employer] 07/17/2023 08:59:20 02/26/2024 text/html Karli presents t bharati for 6 month follow up. She did not have her labs drawn from the last visit. She states that she has had 2 recent deaths due to cancer and she is asking for any screenings that she can do for comfort of self. 07/17/2023Karli presents today to establish care. She states that she has not had a provider since March. She states that her anxiety is under control and that she is going to counseling weekly. She is no longer on Saxenda as it was not affective with her not doing her part so she stopped taking it. 02/05/2023shannon presents today for follow up. She continues on the Saxenda, she is tolerating that without difficulty. She is possibly interested in Zepbound when it comes out. Reports she is getting new health insurance so she will have to check with them at the beginning of the year. She is tolerating her cholesterol medication without difficulty. She did get her MRA. There is no evidence of aneurysm on scan. Anxiety remains stable off of anxiety medications. She declines flu vaccine today. Marci Elias, IZABELA [address] [facility], [facility] [address], [place], [address], [facility] 02/26/2024 10:36:38 OBGyn Episode No OBEpisode recorded.
--- OUTSIDE RECORDS SUMMARY | 2024-10-08 09:45 | XMS_ITS | Clinical Summary ---
Author Organization [facility] Care Team Providers Care Tailor Helper Name Role Phone Unavailable Primary Care Provider Unavailabl e Social History Tobacco Use Types Packs/Day Years Used Date Smoking Tobacco: Never Assessed Comments Unknown Sex and Gender Information Value Date Recorded Sex Assigned at Not on file Legal Sex Female 9:10 AM HEAD OF GEOGRAPHY Gender Identity Not on file Sexual Orientation Not on file Plan of Treatment Health Maintenance Due Date Last Done Comments Hepatitis C Virus (HCV) Screening 1984 TdaP Immunization 1984 Hepatitis B Immunization (1 of 3 - 19+ 3-dose series) 2003 Pap Smear 2005 Cervical Cancer Screening (CCS) 2014 HPV/Cotest 2014 Influenza Immunization (#1) 2023 SARS-COV-2 Immunization ( season) 2023 03/20/2021 Respiratory Syncytial Virus (RSV) Immunization (Adult) (1 - 1-dose 75+ series) 2059 Meningococcal Immunization (ACWY) Aged Out No longer eligible based on patient's age to complete this topic Pneumococcal Immunization Combined Aged Out No longer eligible based on patient's age to complete this topic Rotavirus Immunization Aged Out No lo nger eligible based on patient's age to complete this topic
[2024-10-08 11:26] LABS: Hematocrit 42.7 % (37.0-47.0); Hemoglobin 13.6 g/dL (12.0-15.0); Immature Granulocyte Percent A 0.2 % (0-0.5); Lymphocytes Absolute Auto 1.64 K/mm3 (0.9-3.2); Mean Corpuscular HGB Conc 31.9 g/dl (32-36); Mean Corpuscular Hemoglobin 28.3 pg (26-34); Mean Corpuscular Volume 88.8 fl (80-100); Nucleated Red Blood Cells Absolute Auto 0.000 K/mm3 (0.0-0.012); Nucleated Red Blood Cells Perc 0.0 % (0.0-0.2); Platelet Count Result 305 k/mm3 (150-375); Red Blood Count 4.81 M/mm3 (4.2-5.4); White Blood Count 8.6 K/mm3 (4.5-10.0)
[2024-10-08 11:49] LABS: Glucose 1 Hour PP 50gm Dose 137 mg/dL
[2024-10-08 12:04] LABS: Beta HCG Quantitative 7975.50 mIU/ML
[2024-10-08 12:18] LABS: Syphilis IgG/IgM Antibody Non-Reactive (Nonreactive)
[2024-10-08 12:22] LABS: Hepatitis B Surface Antigen Negative (Negative)
[2024-10-08 12:28] LABS: HIV 1/2 Ab P24 Ag Result Negative (Negative)
[2024-10-09 07:08] LABS: Cytomegalovirus (CMV) Ab, IgG <0.60 U/mL (0.00-0.59)
[2024-10-09 15:09] LABS: Varicella-Zoster Ab, IgG Reactive (Non Reactive); Varicella-Zoster Ab, IgM <0.91 index (0.00-0.90)
== END 2024-10-08 09:42 | disposition home or self-care (01) ==
LOC: ANHLAB 09:43
PROVIDERS: PCP Nurse Practitioner Adult Health; Visit Provider Obstetrics & Gynecology
DX: N91.2 Amenorrhea, unspecified (principal)
CPT/HCPCS: 36415; 82947; 84702; 85025; 86593; 86644; 86703; 86762; 86787; 86850; 86900; 86901; 87086; 87340; G0432

== ENCOUNTER 2024-10-27 07:21 | Outpatient (CLI) | payer BC, SELFPAY ==
--- OUTSIDE RECORDS SUMMARY | 2024-10-27 07:27 | XMS_ITS | Clinical Summary ---
Author Organization [facility] Care Team Providers Care Price Analyst Name Role Phone Unavailable Primary Care Provider Unavailabl e Social History Tobacco Use Types Packs/Day Years Used Date Smoking Tobacco: Never Assessed Comments Unknown Sex and Gender Information Value Date Recorded Sex Assigned at Not on file Legal Sex Female 9:10 AM OFFICE SPEC Gender Identity Not on file Sexual Orientation Not on file Plan of Treatment Health Maintenance Due Date Last Done Comments Hepatitis C Virus (HCV) Screening 1984 TdaP Immunization 1984 Human Papillomavirus (HPV) Immunization (1 - 3-dose series) 1999 Hepatitis B Immunization (1 of 3 - 19+ 3-dose series) 2003 Pap Smear 2005 Cervical Cancer Screening (CCS) 2014 HPV/Cotest 2014 SARS-COV-2 Immunization ( season) 2023 03/20/2021 Influenza Immunization (#1) 2024 Respiratory Syncytial Virus (RSV) Immunization (Adult) (1 [...]
[2024-10-27 08:43] LABS: Beta HCG Quantitative 22.24 mIU/ML
== END 2024-10-27 07:22 | disposition home or self-care (01) ==
LOC: ANHLAB 07:22
PROVIDERS: PCP Nurse Practitioner Adult Health; Visit Provider Obstetrics & Gynecology
DX: O02.1 Missed abortion (principal); Z3A.00 Weeks of gestation of pregnancy not specified
CPT/HCPCS: 36415; 84702

== ENCOUNTER 2024-11-03 07:16 | Outpatient (CLI) | payer BC, SELFPAY ==
[2024-11-03 08:32] LABS: Beta HCG Quantitative 3.00 mIU/ML
== END 2024-11-03 07:17 | disposition home or self-care (01) ==
PROVIDERS: PCP Nurse Practitioner Adult Health; Visit Provider Obstetrics & Gynecology
DX: O02.1 Missed abortion (principal); Z3A.00 Weeks of gestation of pregnancy not specified
CPT/HCPCS: 36415; 84702